=== PATIENT | female | born 1975 | race Caucasian/White ===

== ENCOUNTER 2023-01-26 22:19 | Outpatient (REF) | payer BC, SELFPAY ==
[2023-01-31 12:12] LABS: Age Gdln ACOG Testing Note (.); HPV Aptima Negative (Negative); IGP, Aptima HPV, rfx 16/18,45 Note (.)
== END 2023-01-26 22:20 | disposition home or self-care (01) ==
LOC: LAB 22:19
PROVIDERS: PCP Family Medicine; Visit Provider Physician Assistant
DX: Z01.419 Encounter for gynecological examination (general) (routine) without abnormal findings (principal)
CPT/HCPCS: 87624; G0145

== ENCOUNTER 2023-02-18 08:24 | Outpatient (OUT) | payer BC, SELFPAY ==
--- NOTE | 2023-02-18 08:26 | MM_ITS ---
Patient: SU ZHANG Exam Date: 02/18/2023 : 1975 Gender:F Ordering : DR Viktor Chavez . Admission #: [id number] Family : Non-Staff Physician Order #: [id number] CLICK HERE TO VIEW EXAM RADIOLOGY REPORT PROCEDURE: MM TOMOSYNTHESIS SCREENING BI COMPARISON: MG MAMM SCREEN 3D HECTOR CAD, 02/17/2022. MG MAMM SCREEN 3D HECTOR CAD, 02/08/2021. INDICATIONS: Screening Calculator Name NCI Breast Cancer Risk Assessment Tool 5 Year Breast Cancer Risk 1.00% Lifetime Breast Cancer Risk 11.90% Personal Breast Cancer No Personal Ovarian Cancer No Treatments None Family Cancers None LOCATION: [facility] BREAST COMPOSITION: Heterogeneously dense,which may obscure small masses. FINDINGS: DIAGNOSTIC CATEGORY 1--NEGATIVE. NO CHANGE FROM COMPARISON ASSESSMENT. Scattered benign-appearing calcifications are present. RIGHT BREAST: No significant suspicious finding. LEFT BREAST: No significant suspicious finding. RECOMMENDATIONS: ROUTINE MAMMOGRAM AND CLINICAL EVALUATION IN 12 MONTHS. PLEASE NOTE: A NORMAL MAMMOGRAM DOES NOT EXCLUDE THE POSSIBILITY OF BREAST CANCER. A CLINICALLY SUSPICIOUS PALPABLE LUMP SHOULD BE BIOPSIED. Dictated by: Chris Licea MD on 02/18/2023 at 09:06 Approved by: Chris Licea MD on 02/18/2023 at 09:07
== END 2023-02-18 08:25 | disposition home or self-care (01) ==
LOC: MAMMO 08:24
PROVIDERS: Visit Provider Obstetrics & Gynecology
DX: Z12.31 Encounter for screening mammogram for malignant neoplasm of breast (principal)
CPT/HCPCS: 77063; 77067

== ENCOUNTER 2024-02-24 06:57 | Outpatient (OUT) | payer BC, SELFPAY ==
--- NOTE | 2024-02-24 07:00 | MM_ITS ---
Patient Name: SU ZHANG MR#: [id number] : 1975 Exam Date: 02/24/2024 Ordering Doctor: DR Viktor Chavez . RADIOLOGY REPORT PROCEDURE: MM TOMOSYNTHESIS SCREENING BI COMPARISON: MM TOMOSYNTHESIS SCREENING BI, 02/18/2023. MG MAMM SCREEN 3D HECTOR CAD, 02/17/2022. MG MAMM SCREEN 3D HECTOR CAD, 02/08/2021. MG MAMM SCREEN HECTOR W CAD, 01/27/2018. INDICATIONS: Screening for malignant neoplasm Calculator Name [facility] Breast Cancer Risk Assessment Tool 5 Year Breast Cancer Risk 1.10% Lifetime Breast Cancer Risk 11.80% Personal Breast Cancer No Personal Ovarian Cancer No Treatments None Family Cancers None LOCATION: [facility] BREAST COMPOSITION: The breasts are heterogeneously dense,which may obscure small masses. FINDINGS: DIAGNOSTIC CATEGORY 1--NEGATIVE. RIGHT BREAST: No significant suspicious finding. No significant change has occurred. LEFT BREAST: No significant suspicious finding. No significant change has occurred. RECOMMENDATIONS: ROUTINE MAMMOGRAM AND CLINICAL EVALUATION IN 12 MONTHS. PLEASE NOTE: A NORMAL MAMMOGRAM DOES NOT EXCLUDE THE POSSIBILITY OF BREAST CANCER. A CLINICALLY SUSPICIOUS PALPABLE LUMP SHOULD BE BIOPSIED. Dictated by: Vaughn Hunt M.D. on 02/26/2024 at 09:13 Approved by: Vaughn Hunt M.D. on 02/26/2024 at 09:25
== END 2024-02-24 06:58 | disposition home or self-care (01) ==
LOC: MAMMO 06:57
PROVIDERS: Visit Provider Obstetrics & Gynecology
DX: Z12.31 Encounter for screening mammogram for malignant neoplasm of breast (principal)
CPT/HCPCS: 77063; 77067

== ENCOUNTER 2024-04-07 11:54 | Outpatient (OUT) | payer BC, SELFPAY ==
--- OUTSIDE RECORDS SUMMARY | 2024-04-07 11:56 | XMS_ITS | CCD ---
Author Organization [facility] Care Team Providers Care Chiropractic Neurologist Name Role Phone PHYSICIAN, DEFAULT Unavailable Unavailable PHYSICIAN, DEFAULT Unavailable Unavailable PHYSICIAN, DEFAULT Unavailable Unavailable PHYSICIAN, DEFAULT Unavailable Unavailable KALA MARCUS Admitting Unavailable KALA MARCUS Attending Unavailable STEPHANIE, DR MILLER Primary Care Unavailable KALA MARCUS Consulting Unavailable KARASIK, DR RAMSEY Admitting Unavailable KARASIK, DR RAMSEY Attending Unavailable STEPHANIE, DR MILLER Primary Care Unavailable KARASIK, DR RAMSEY Consulting Unavailable WEST, DR CRISPIN Graham Consulting Unavailable KARASIK, DR RAMSEY Admitting Unavailable KARASIK, DR RAMSEY Attending Unavailable STEPHANIE, DR MILLER Primary Care Unavailable KARASIK, DR RAMSEY Consulting Unavailable KALA MARCUS Attending Unavailable LINDA CHOUDHURY Attending Unavailable HEMLINDA RODRIGUEZ Attending Unavailable Problems Active Problems Problem Classification Problem Date Documented Date Episodic/Chronic Immunizations and screening for infectious disease (1 source) Encounter for screening for human papillomavirus (HPV); Translations: [ENC SCREENING HUMAN PAPILLOMAVIRUS] Onset: 04-03-2022 Episodic Other screening for suspected conditions (not mental disorders or infectious disease) (8 sources) Encounter for screening for malignant neoplasm of cervix; Translations: [Encounter for screening mammogram for malignant neoplasm of breast] Onset: 02-17-2022 Episodic Unclassified (3 sources) OTHER VENTRICULAR TACHYCARDIA; Translations: [OTHER VENTRICULAR TACHYCARDIA] Onset: 05-04-2022 Past or Other Problems Problem Classification Problem Date Documented Da te Episodic/Chronic Unclassified (1 source) OTHER VENTRICULAR TACHYCARDIA; Translations: [OTHER VENTRICULAR TACHYCARDIA] Onset: 04-30-2022 Results Test Name Value Interpretation Reference Range Facility Office Visiton 06-26-2023 Follow-up visit [id number] Su Zhang 1975 F Date Provider Department Center 06/26/2023 6120-KALA MARCUS CARD [facility] Family History Problem Relation Age of Onset Diabetes Brother Hypertension Maternal Grandmother Hyperlipidemia Maternal Grandfather Diabetes Maternal Grandfather Family Status - Relation Status Age at Brother Maternal Grandmother Maternal Grandfather Level of Service:91242 [place] OFFICE/OUTPATIENT ESTABLISHED LOW MDM 20 MIN Normal [facility] ECHOCARDIO M/2D COMPLETEon 1 06-30-2021 ECHOCARDIO M/2D COMPLETE Patient: SU ZHANG Exam Date: 04/30/2022 : 1975 Gender:F Ordering : KALA MARCUS Admission #: [id number] Family : DR PAUL BROWN M.D. Order #: [id number] CLICK HERE TO VIEW EXAM ECHOCARDIOGRAM REPORT PROCEDURE: CARDIO PULMONARY ECHOCARDIO M/2D COMP INDICATIONS: Paroxysmal ventricular tachycardia, Palpitations, HTN COMPARISON: None. DESCRIPTION: COMPLETE ECHOCARDIOGRAM Real-time transthoracic echocardiography with 2D, M-mode, spectral and color flow Doppler performed. QUALITY: Technical quality was adequate. 67 167# 124/82 HR 91 LEFT VENTRICLE: Normal chamber size. Normal left ventricular wall thickness. Global left ventricular systolic function is normal. No regional wall motion abnormalities. LV EF: Calculated left ventricular ejection fraction is 66%. DIASTOLIC: Normal diastolic function. ATRIAL SEPTUM: LEFT ATRIUM: Normal chamber size. RIGHT ATRIUM: Normal chamber size. RIGHT VENTRICLE: Normal chamber size. Normal right ventricular systolic function. TRICUSPID VALVE: Normal mobility and thickness. No stenosis with trivial regurgitation. Unable to calculate right sided pressures due to lack of regurgitation. MITRAL VALVE: Normal mobility and thickness. No evidence of mitral valve stenosis. Trivial mitral regurgitation. AORTIC VALVE: Normal trileaflet appearance. No evidence of aortic valve stenosis. No aortic regurgitation. AORTIC ROOT: Normal diameter and appearance. PULMONIC VALVE: Normal thickness and mobility. No stenosis. Trivial regurgitation. PERICARDIUM: Trivial pericardial effusion. IVC: Collapses with inspirations. IVC is normal in size. PLEURA: CONCLUSION: 1. Normal ventricular size and function. LVEF is estimated at 65 to 70%. 2. No significant valvular dysfunction. 3. Trivial pericardial effusion. Adult Echocardiography Procedure Report Left Ventricle LVEDD (3.7 - 5.6 cm): 4.58 cm LVESD (2.2 - 4.0 cm): 2.53 cm LVPW thickness (0.5 - 1.0 cm): 0.91 cm LVOT Max Gradient: 4.82 mm[Hg] Peak Velocity (LVOT): 1.10 m/s LVOT Diameter 2.08 cm Left Ventricular Ejection Fraction: 65-70 % Left Atrium LA Volume Index (2D A2C): 54.45 ml, 54.45 ml Left Atrium Systolic Dimension: 3.11 cm Mitral Valve MV E to A Ratio: 1.13 Mitral Valve A-Wave Peak Velocity: 0.56 m/s Mitral Valve E-Wave Peak Velocity: 0.63 m/s Right Ventricle RV Internal Diastolic Dimension: 3.75 cm Aorta AO Root Diam: 3.26 cm Ascending Ao Diam: 2.94 cm Aortic Valve AoV Area (Peak Cornell): 3.04 cm2, 3.04 cm2 Peak Velocity(Antegrade Flow): 1.22 m/s Peak Gradient(Antegrade Flow): 5.94 mm[Hg] Tricuspid Valve Peak Velocity: 0.50 m/s, 0.44 m/s Pulmonic Valve Peak Velocity: 1.03 m/s Peak Gradient: 4.22 mm[Hg] Right Atrium Dictated by: Henrique Conde M.D. on 04/30/2022 at 18:02 Approved by: Henrique Conde M.D. on 04/30/2022 at 18:05 [facility] PAP ACOG PANEL 2: 30 to 65on 04-06-2022 . . Normal [facility] Comment on above: Result Comment: Perf ormed at: BA Performed By: #### [id number] #### [facility] [address] [place] [address] Dr. Rocio Stein Age Gdln ACOG Testing 30-65 [facility] Comment on above: Performed By: #### [id number] #### [facility] [address] [address] [address] Rocio Stein DIAGNOSIS: Comment [facility] Comment on above: Result Comment: NEGA TIVE FOR INTRAEPITHELIAL LESION OR MALIGNANCY. Performed at: BA Performed By: #### [id number] #### [facility] [address] [address] [address] Rocio Stein HPV Aptima Negative Normal Negative [facility] Comment on above: Result Comment: This nucleic acid amplification test detects fourteen high-risk HPV types (16,18,31,33,35,39,45,51,52,56,58,59,66,68) without differentiation. Performed at: =G Performed By: #### [id number] #### [facility] [address] [place] [address] Dr. Rocio Stein Methodology: Comment Normal [facility] Comment on above: Result Comment: This liquid based ThinPrep(R) pap test was screened with the use of an image guided system. Performed at: WB Performed By: #### [id number] #### [facility] [address] [place] [address] Dr. Rocio Stein Note: Comment Normal [facility] Comment on above: Result Comment: The Pap smear is a screening test designed to aid in the detection of premalignant and malignant conditions of the uterine cervix. It is not a diagnostic procedure and should not be used as the sole means of detecting cervical cancer. Both false-positive and false-negative reports do occur. . Performed at: WB Performed By: #### [id number] #### [facility] [address] [place] [address] Dr. Rocio Stein Performed by: Comment Normal [facility] Comment on above: Result Comment: Kay Velarde, Paper Control Clerk (ASCP) Performed at: BA Performed By: #### [id number] #### [facility] [address] [place] [address] Dr. Rocio Stein Specimen adequacy: Comment Normal [facility] Comment on above: Result Comment: Sati sfactory for evaluation. Endocervical and/or squamous metaplastic cells (endocervical component) are present. Performed at: BA Performed By: #### [id number] #### [facility] [address] [place] [address] Dr. Rocio Stein MG MAMM SCREEN 3D FREDERICK CADon 02-17-2022 MG MAMM SCREEN 3D FREDERICK CAD Patient: SU ZHANG Exam Date: 02/17/2022 : 1975 Gender:F Ordering : DR BRAULIO WALTER . Admission #: [id number] Family : Order #: [id number] CLICK HERE TO VIEW EXAM RADIOLOGY REPORT PROCEDURE: MAMMOGRAM SCREENING 3D BILATERAL CAD COMPARISON: MG MAMM SCREEN FREDERICK W CAD, 02/08/2020. MG MAMM SCREEN 3D FREDERICK CAD, 02/08/2021. INDICATIONS: Screening mammography Calculator Name NCI Breast Cancer Risk Assessment Tool 5 Year Breast Cancer Risk 1.00% Lifetime Breast Cancer Risk 12.00% Personal Breast Cancer No Personal Ovarian Cancer No Treatments None Family Cancers None LOCATION: [facility] BREAST COMPOSITION: Heterogeneously dense,which may obscure small masses. FINDINGS: DIAGNOSTIC CATEGORY 2--BENIGN FINDING. NO CHANGE FROM COMPARISON. Scattered benign-appearing nodules are present. Bilateral geographic microcalcifications are grossly stable from the prior exam. While these do limit diagnostic sensitivity, I favor sclerosing adenosis. RIGHT BREAST: No significant suspicious finding. LEFT BREAST: No significant suspicious finding. RECOMMENDATIONS: ROUTINE MAMMOGRAM AND CLINICAL EVALUATION IN 12 MONTHS. PLEASE NOTE: A NORMAL MAMMOGRAM DOES NOT EXCLUDE THE POSSIBILITY OF BREAST CANCER. A CLINICALLY SUSPICIOUS PALPABLE LUMP SHOULD BE BIOPSIED. Dictated by: Crispin Licea MD on 02/17/2022 at 10:27 Approved by: Crispin Licea MD on 02/17/2022 at 11:03 Normal [facility] Coding Summary.on 01-27-2019 Coding Summary. CODING DATE: 01/27/2019 FINAL [facility] STATUS: Home (Routine DC) PAYOR: [place] APC DESCRIPTION 5155 Level 5 Airway Endoscopy ADMIT DX: REASON FOR VISIT DX: J34.89 Other specified disorders of nose and nasal sinuses FINAL DX: PRINCIPAL: J34.89 Other specified disorders of nose and nasal sinuses SECONDARY: J32.0 Chronic maxillary sinusitis J32.2 Chronic ethmoidal sinusitis I10 Essential (primary) hypertension K21.9 Gastro-esophageal reflux disease without esophagitis PYMT PROC APC STAT DESCRIPTION DOCTOR NAME DATE 31328 Nasal/sinus endoscopySimran MD, Hilary H 01/20/2019 surgical; with tonia bullosa resection 50 Bilateral Procedure [id number] 5155 J1 Nasal/sinus endoscopySimran MD, Hilary H 01/20/2019 surgical with ethmoidectomy; partial (anterior) LT Left side (used to identify procedures performed on the left side of the body) 22363 Nasal/sinus endoscopy, Annelise Khalil MD 01/20/2019 surgical, with maxillary antrostomy; 50 Bilateral Procedure [id number] Anesthesia for Keshia Jairo Galan DO 01/20/2019 procedures on nose and accessory sinuses; not otherwise specified NOTE: The code number assigned matches the documented diagnosis and / or procedure in the patient's chart. However, the narrative phrase printed from the coding software may appear abbreviated, or result in slightly different terminology. Revised Coded By: Ivania Gray Revised Date Saved: 01/27/2019 02:02 pm Normal [facility] Operative Reporton 9 Operative Report Date of Surgery: 01/20/2019 SURGEON: Annelise Khalil Jr., M.D. 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 INDICATIONS: This 43-year-old presented with chronic maxillary and ethmoid sinusitis unresponsive to aggressive medical management. PROCEDURE: The patient identified in the Holding Area and taken back to the Operating Room where she was placed in a supine. After induction of general endotracheal anesthesia, the table was turned, the head elevated 20 degrees and the face was draped in a sterile fashion. Afrin-soaked pledgets were then placed on each side of the nose after waiting adequate time for decongestion. The nose was approached with a nasal endoscope. Lidocaine 1% with 1:1000 epinephrine was injected into each middle turbinate and the lateral nasal wall. An Afrin-soaked pledget was then placed lateral to the middle turbinate on each side. While awaiting hemostasis, the image-guidance system was registered and proper function was verified. The Afrin-soaked pledgets were then removed. Both sides of the nose were copiously irrigated. Attention was first turned to the right nose. The nose was approached with a nasal endoscope and a curved scissor to the right was used to excise the tonia bullosa and it was removed with a straight ethmoid forcep. The uncinate process was then incised with a sickle knife and removed with an ethmoid forcep. The natural ostium of the maxillary sinus was identified with a Graham seeker and then opened posteriorly with a straight biting forcep and inferiorly with side biting and back biting forceps. The posterior root of the middle turbinate was then prophylactically cauterized to minimize the risk of postoperative bleeding. Attention was then turned to the left side of the nose and the same procedure was performed. After completing the maxillary antrostomy, however straight and upbiting ethmoid forceps were used to open the anterior ethmoid air cells. Both sides of the nose were then copiously irrigated. There was no significant bleeding. The patient was awakened and taken to the Recovery Room in good condition. Annelise Khalil Jr., M.D. gls Dictated: 01/27/2019 #[id number] Typed: 01/27/2019 #[id number] cc: MD Annelise Ferraro Jr., M.D. [facility] Comment on above: Result Comment: Elec tronically Signed By: Annelise Khalil MD\.br\Date and Time Signed: 01/27/19 11:46 EDT Main OR Intraoperative Recor don 01-21-2019 Main OR Intraoperative Record IntraOp Document Type FT Summary Primary Physician: Annelise Khalil MD Finalized Date/Time: 01/21/19 12:25:07 Pt. Name: SU ZHANG/Sex: 1975 Female Med Rec #: [id number] Physician: Annelise Khalil MD Financial #: [id number] Pt. Type: A Room/Bed: [facility] Admit/Disch: 01/20/19 08:56:00 - 01/20/19 13:15:00 Institution: Case Times FT Entry 1 Patient Times In Room 01/20/19 10:17:00 Out Room 01/20/19 11:01:00 Procedure Times Start 01/20/19 10:31:00 Stop 01/20/19 10:53:00 Anesthesia Times Start 01/20/19 10:17:00 Stop 01/20/19 11:01:00 Last Modified By: Deepti Auguste CST 01/20/19 11:01:25 General Comments: 01/21/19 Chart opened to review and send charges Hill Auguste CST Case Attendance FT Entry 1 Entry 2 Entry 3 Case Attendee Keshia Galan DO, Jairo Khalil MD, Annelise Vivas RN, Ross Kyle Role Performed Anesthesiologist of Surgeon - Primary Class A Truck Driver - Primary Record Time In 01/20/19 10:17:00 01/20/19 10:17:00 01/20/19 10:17:00 Time Out 01/20/19 11:01:00 01/20/19 11:01:00 01/20/19 11:01:00 Procedure ANTROSTOMY TURBINECTOMY ANTROSTOMY TURBINECTOMY ANTROSTOMY TURBINECTOMY ETHMOIDECTOMY IM(.) ETHMOIDECTOMY IM(.) ETHMOIDECTOMY IM(.) Comments Last Modified By: Sangeetha LESTER, Ross Vivas RN, Ross Hart RN 01/20/19 11:01:27 01/20/19 11:01:27 01/20/19 11:01:27 Entry 4 Entry 5 Case Attendee Sage RN, Linda West CST, Tawnya Shore Role Performed Class A Truck Driver - Primary Scrub - Primary Time In 01/20/19 10:17:00 01/20/19 10:17:00 Time Out 01/20/19 11:01:00 01/20/19 11:01:00 Procedure ANTROSTOMY TURBINECTOMY ANTROSTOMY TURBINECTOMY ETHMOIDECTOMY IM(.) ETHMOIDECTOMY IM(.) Comments Last Modified By: Sangeetha LESTER, Ross Hart RN 01/20/19 11:01:27 01/20/19 11:01:27 Perioperative Protocols FT Pre-Care Text: Implements protective measures prior to operative or invasive procedure, confirms identity before the operative or invasive procedure, verifies operative procedure, surgical site, and laterality Entry 1 Procedure(s) ANTROSTOMY TURBINECTOMY Patient Identity Birthday, ID Band ETHMOIDECTOMY IM(.) Verified (select at Check, Patient least 2): Participation Consents / H and P Anesthesia Consent, Operative Site Present Verified HandP, Surgery/Procedure Marking Verified Consent Surgical Site Yes Laterality Verified Yes Verified Procedure Verified Yes Correct Patient Yes Position Verified Availability Equipment, Medication Prep Dry n/a Verified (If Applicable) PreOp Antibiotic No Time Out Keshia Galan DO, Jairo, Given Participants Simran JONES, Annelise Lerner, Sangeetha LESTER, Sage Saha RN, Jenna Vizcarra CST, Tawnya Shore Time Out Complete 01/20/19 10:30:00 Outcomes Met? Yes Last Modified By: Ross Vivas RN 01/20/19 10:30:28 Post-Care Text: The patient is free from signs and symptoms of injury caused by extraneous objects Allergy Information FT Pre-Care Text: Verifies allergies Entry 1 Allergies Reviewed? Yes Allergies Reviewed Self/Patient With Outcomes Met? Yes Last Modified By: Ross Vivas RN 01/20/19 10:30:42 Post-Care Text: The patient received appropriate medication(s) safely administered during the perioperative period Surgical Procedures FT Entry 1 Procedure Description Procedure ANTROSTOMY TURBINECTOMY Modifiers . ETHMOIDECTOMY IMAGE GUIDED Surgeon Description IMAGE GUIDED BILATERAL MIDDLE MEATAL ANTROSTOMY LEFT ANTERIOR ETHMOIDECTOMY BILATERAL REMOVAL TONIA BULLOSA Primary Procedure Yes Primary Surgeon Annelise Khalil MD Start 01/20/19 10:31:00 Stop 01/20/19 10:53:00 Anesthesia Type General Surgical Service ENT Wound Class 2 - Clean-Contaminated Last Modified By: Ross Vivas RN 01/20/19 10:54:22 General Case Data FT Pre-Care Text: Classifies surgical wound, implements aseptic technique, initiates traffic control Entry 1 Case Information OR OR 2 FT Case Level Level 3 Wound Class 2 - Clean-Contaminated Specialty ENT ASA Class 2 Preop Diagnosis CHRONIC SINUSITIS Postop Same As Preop Yes Postop Diagnosis CHRONIC SINUSITIS Outcomes Met? Yes Last Modified By: Ross Vivas RN 01/20/19 10:54:27 Post-Care Text: The patient is free from signs and symptoms of infection Skin Assessment (Pre Procedure) FT Pre-Care Text: Implements protective measures to prevent skin/ tissue injury due to thermal or mechanical sources Evaluates for signs and symptoms of physical injury to skin and tissue Entry 1 Skin Integrity Intact, [place], Warm, and Outcomes Met? Yes Dry Last Modified By: Ross Vivas RN 01/20/19 10:30:49 Post-Care Text: The patient is free from signs and symptoms of injury caused by extraneous objects Patient Positioning FT Pre-Care Text: Identifies physical alterations that require additional precautions for procedure-specific positioning, verifies presence of prosthetics or corrective devices, positions the patient, evaluates the patient for signs and symptoms of injury as a result of positioning Entry 1 Procedure ANTROSTOMY TURBINECTOMY Body Position Supine ETHMOIDECTOMY IM(.) Feet Uncrossed? Yes Left Arm Position Extended on Padded Arm Board Right Arm Position Tucked and Padded at Left Leg Position Extended Side Right Leg Position Extended Positioning Device Donut Headrest, Safety Strap, Shoulder Roll(s) Press Points Checked Yes By Sangeetha LESTER, Keshia Saha Jr., DO, Gary, Farris RN, Linda Kyle Outcomes Met? Yes Last Modified By: Ross Vivas RN 01/20/19 10:31:16 Post-Care Text: The patient is free from signs and symptoms of injury related to positioning Patient Care Devices FT Pre-Care Text: Implements protective measures to prevent skin/ tissue injury due to thermal or mechanical sources Entry 1 Entry 2 Entry 3 Equipment Type CONSOLE MEDTRONIC IPC HEADLIGHT[F] MEDTRONIC FUSION SYSTEM [F] [F] Equipment Number Equipment Setting Outcomes Met? Yes Yes Yes Last Modified By: Ross Vivas RN, RN, Ross Hart RN 01/20/19 09:40:24 01/20/19 09:40:24 01/20/19 09:40:24 Entry 4 Entry 5 Entry 6 Equipment Type MISTRAL FORCED AIR MONITOR CHARGE SURGERY VIDEO SYSTEM[F] WARMING SYSTEM UNIT[F] [F] Equipment Number m2 Equipment Setting 43 Outcomes Met? Yes Yes Yes Last Modified By: Ross Vivas RN, RN, Ross Hart RN 01/20/19 09:40:24 01/20/19 09:40:24 01/20/19 09:40:24 Post-Care Text: The patient is free from signs and symptoms of injury caused by extraneous objects Transport To OR FT Pre-Care Text: Transports according to individual needs. Evaluates for signs and symptoms of skin and tissue injury as a result of transfer or transport Entry 1 Via Cart By Ross Vivas RN Safety Precautions Side Rails Up Outcomes Met? Yes Last Modified By: Ross Vivas RN 01/20/19 09:40:35 Post-Care Text: The patient is free from signs and symptoms of injury related to transfer/transport Cautery FT Pre-Care Text: Implements protective measures to prevent injury due to electrical sources, and evaluates for signs and symptoms of electrical injury Entry 1 ESU Identification ESU Settings Cut 0 Coag 15 ESU Grounding Pad Site Left Thigh Hair Removal Pad No Site Pre Pad Site Clear and Intact Post Pad Site Clear and Intact Condition Condition Grounding Pad Ross Vivas RN Placed By Outcomes Met? Yes Last Modified By: Ross Vivas RN 01/20/19 10:20:28 Post-Care Text: The patient if free from signs and symptoms of electrical injury Counts Verification FT Pre-Care Text: Performs required counts Entry 1 Entry 2 Procedure(s) ANTROSTOMY TURBINECTOMY ANTROSTOMY TURBINECTOMY ETHMOIDECTOMY IM(.) ETHMOIDECTOMY IM(.) Type Initial Final Items Sponges, Sharps Sponges, Sharps Status Correct Correct Time By Jenna NASSAR, Tawnya Shore, Tawnya West CST, Tinker RN, Linda Sal RN Outcomes Met? Yes Yes Last Modified By: Ross Vivas RN, RN, Kail M 01/20/19 10:31:38 01/20/19 11:00:18 Post-Care Text: The patient is free from signs and symptoms of injury caused by extraneous objects Departure From OR FT Pre-Care Text: Transports according to individual needs. Evaluates for signs and symptoms of skin and tissue injury as a result of transfer or transport. Entry 1 Via Cart Safety Precautions Side Rails Up PostOp Destination PACU Transported By Ross Vivas RN Patient Status Stable Skin. Condition Intact, [place], Warm, and Dry Airway Maintenance Oxygen in Use? Yes Airway Device Simple Mask Flow Rate 8 L Outcomes Met? Yes Last Modified By: Ross Vivas RN 01/20/19 10:32:03 Post-Care Text: The patient is free from signs and symptoms of injury related to transfer/transport General Comments: report to pacu nurse/ megan lesterinsulation worker furnace installer Administration FT Pre-Care Text: Verifies allergies, administers prescribed medications and solutions, administers prescribed antibiotic therapy and immunizing agents as ordered, evaluates response to medications Administers prescribed medications and solutions Entry 1 Expiration Date Yes Outcomes Met? Yes Verified Last Modified By: Ross Vivas RN 01/20/19 10:20:34 Post-Care Text: The patient received appropriate medication(s) safely administered during the perioperative period For [facility] please see scanned medication reconcilliation form for medications used at the field during the procedure. Cultures and Specimens FT Pre-Care Text: Manages specimen handling and disposition Manages culture specimen collection Entry 1 Cultures Ordered No Specimens Ordered Yes Specimen Disposition Designated OR Area Frozen Section Times Outcomes Met? Yes Last Modified By: oRss Vivas RN 01/20/19 10:32:17 Post-Care Text: The patient is free from signs and symptoms of injury caused by extraneous objects The patient is free from signs and symptoms of infection Temperature Control Entry 1 Temperature Control BLANKET MISTRAL AIR Quantity 1 Aid PLUS LOWER BODY [[id number]][F] Fluid/[place] Unit Mistral warming system Setting 43 Body Site Lower anterior torso Last Modified By: Ross Vivas RN 01/20/19 09:41:59 Case Comments Finalized By: Deepti Auguste CST Document Signatures Signed By: Ross Vivas RN 01/20/19 11:01 Deepti Auguste CST 01/21/19 12:25 Normal [facility] B hCG Qualon 01-20-2019 Beta hCG Ql Negative Normal [facility] Comment on above: Performed By: #### [id number] ####[facility] [id number] [place] [address] Inpatient Patient Summaryon 01-20-2019 Inpatient Patient Summary [facility] Clinical Discharge Instructions PERSON INFORMATION Name: SU ZHANG PHYSICIANS Admitting Physician: Annelise Khalil MD Attending Physician: Annelise Khalil MD PCP: PAUL BROWN MD Discharge Diagnosis: Chronic ethmoidal sinusitis; Chronic maxillary sinusitis; Tonia bullosa Comment: PATIENT EDUCATION INFORMATION Instructions: Medication Leaflets: Follow up: With: Address: When: Annelise Khalil [address] [place] [address], [address] [place] [address] Business (1) In 8 days 01/28/2019 MEDICATION LIST Comment: [facility] Main OR PACU I [facility] Main OR PACU I Record PACU Phase I Document Type FT Summary Primary Physician: Annelise Khalil MD Finalized Date/Time: 01/20/19 11:49:49 Pt. Name: SU ZHANG/Sex: 1975 Female Med Rec #: [id number] Physician: Annelise Khalil MD Financial #: [id number] Pt. Type: A Room/Bed: [facility] Admit/Disch: 01/20/19 08:56:33 - Institution: Case Times PACU I FT Pre-Care Text: Identifies barriers to communication and implements measures to provide psychological support Develops individualized plan of care, and ensures continuity of care Maintains patient's dignity and privacy, and maintains patient confidentiality Identifies and reports philosophical, cultural, and spiritual beliefs and values Identifies individual values and wishes concerning care Implements aseptic technique, and administers prescribed antibiotic therapy and immunizing agents as ordered Evaluates postoperative tissue perfusion Implements thermoregulation measures, and monitors body temperature Evaluates postoperative respiratory status Evaluates postoperative cardiac status Evaluates postoperative neurological status Assesses pain control, collaborated in initiating patient-controlled analgesia and implements alternative methods of pain control Verifies allergies, administers prescribed medications and solutions, evaluates response to medications Entry 1 In PACU I 01/20/19 11:03:00 Discharge from PACU 01/20/19 11:33:00 I Outcomes Met? Yes Last Modified By: Rosa Chu RN 01/20/19 11:49:40 Post-Care Text: The patient demonstrates knowledge of the expected response to the operative or invasive procedure The patient's care is consistent with the individualized perioperative plan of care The patient's right to privacy is maintained The patient's value system, lifestyle, ethnicity, and culture are considered, respected, and incorporated into the perioperative plan of care The patient participates in decisions affecting his or her perioperative plan of care The patient is free from signs and symptoms of infection The patient has wound/tissue perfusion consistent with or improved from baseline levels established preoperatively The patient is at or returning to normothermia at the conclusion of the immediate postoperative period The patient's respiratory function is consistent with or improved from baseline levels established preoperatively The patient's cardiovascular status is consistent with or improved from baseline levels established preoperatively The patient's cardiovascular status is consistent with or improved from baseline levels established preoperatively The patient demonstrates and/or reports adequate pain control throughout the perioperative period The patient received appropriate medication(s), safely administered during the perioperative period Acuity Level PACU I FT Entry 1 Start Time 01/20/19 11:03:00 Stop Time 01/20/19 11:33:00 Acuity Level Acuity Level I Last Modified By: Rosa Chu RN 01/20/19 11:49:47 Finalized By: Rosa Chu RN Document Signatures Signed By: Rosa Chu RN 01/20/19 11:49 Normal [facility] Main OR PACU II Recordon Main OR PACU II Record PACU Phase II Document Type FT Summary Primary Physician: Annelise Khalil MD Finalized Date/Time: 01/20/19 13:19:04 Pt. Name: SU ZHANG/Sex: 1975 Female Med Rec #: [id number] Physician: Annelise Khalil MD Financial #: [id number] Pt. Type: Room/Bed: [place] [address] Admit/Disch: 01/20/19 08:56:33 - Institution: Case Times PACU II FT Pre-Care Text: Identifies barriers to communication and implements measures to provide psychological support and determines knowledge level Develops individualized plan of care, and ensures continuity of care Maintains patient's dignity and privacy, and maintains patient confidentiality Identifies and reports philosophical, cultural, and spiritual beliefs and values Identifies individual values and wishes concerning care administers prescribed antibiotic therapy and immunizing agents as ordered, Evaluates postoperative tissue perfusion Implements thermoregulation measures, and monitors body temperature Evaluates postoperative respiratory status Evaluates postoperative cardiac status Evaluates postoperative neurological status Assesses pain control, collaborated in initiating patient-controlled analgesia and implements alternative methods of pain control Verifies allergies, administers prescribed medications and solutions, evaluates response to medications Entry 1 In PACU II 01/20/19 11:35:00 Discharge from PACU 01/20/19 13:15:00 II Outcomes Met? Yes Last Modified By: Scarlett Bermudez RN 01/20/19 13:19:03 Post-Care Text: The patient demonstrates knowledge of the expected response to the operative or invasive procedure The patient's care is consistent with the individualized perioperative plan of care The patient's right to privacy is maintained The patient's value system, lifestyle, ethnicity, and culture are considered, respected, and incorporated into the perioperative plan of care The patient participates in decisions affecting his or her perioperative plan of care. The patient is free from signs and symptoms of infection The patient has wound/tissue perfusion consistent with or improved from baseline levels established preoperatively The patient is at or returning to normothermia at the conclusion of the immediate postoperative period The patient's respiratory function is consistent with or improved from baseline levels established preoperatively The patient's cardiovascular status is consistent with or improved from baseline levels established preoperatively The patient's neurological status is consistent with or improved from baseline levels established preoperatively The patient demonstrates and/or reports adequate pain control throughout the perioperative period The patient received appropriate medication(s), safely administered during the perioperative period Finalized By: Scarlett Bermudez RN Document Signatures Signed By: Scarlett Bermudez RN 01/20/19 13:19 Normal [facility] Main OR Preoperative Recordo n 01-20-2019 Main OR Preoperative Record PreOp Document Type FT Summary Primary Physician: Annelise Khalil MD Finalized Date/Time: 01/20/19 10:32:39 Pt. Name: SU ZHANG/Sex: 1975 Female Med Rec #: [id number] Physician: Annelise Khalil MD Financial #: [id number] Pt. Type: A Room/Bed: [facility]07/23 Admit/Disch: 01/20/19 08:56:33 - Institution: Case Times PreOp FT Pre-Care Text: Verifies consent for planned procedure, identifies individual values and wishes concerning care, includes family members in perioperative teaching Entry 1 Patient Times. In Pre Surgery 01/20/19 09:05:00 Out Pre Surgery 01/20/19 10:16:00 Outcomes Met? Yes Last Modified By: Ross Vivas RN 01/20/19 10:32:36 Post-Care Text: The patient participates in decisions affecting his or her perioperative plan of care Finalized By: Ross Vivas RN Document Signatures Signed By: Ross Vivas RN 01/20/19 10:32 [facility] Operative Reporton 9 Operative Report Patient: SU ZHANG Age: 43 years Sex: Female : 1975 Associated Diagnoses: None Author: Annelise Khalil MD Postoperative Information Procedure: Frederick MMA and r/o conchae, left ant etmoidectomy Preoperative Diagnosis: Chronic maxillary sinusitis (KCL03-PH J32.0, Working, Medical), Tonia bullosa (SXI25-MZ J34.89, Working, Medical), Chronic ethmoidal sinusitis (YRP08-VY J32.2, Working, Medical). Postoperative Diagnosis: Chronic maxillary sinusitis (SZW65-ES J32.0, Discharge, Medical), Tonia bullosa (BZH34-WY J34.89, Discharge, Medical), Chronic ethmoidal sinusitis (FJW85-IE J32.2, Discharge, Medical). Performed by: Annelise Khalil MD. Findings: frederick conchae, grossly normal sinus anatomy. Specimens Removed: l7r sinus contents. Estimated Blood Loss: 10 ml. Medications Complications: None. [facility] Comment on above: Result Comment: Elec tronically Signed By: Annelise Khalil MD\.br\Date and Time Signed: 01/20/19 11:09 EDT Patient Education - Texton 0 01-20-2019 Patient Education - Text [facility] Coding Summary.on 01-07-2019 Coding Summary. CODING DATE: 01/07/2019 FINAL [facility] STATUS: Home (Routine DC) PAYOR: Cecile APC DESCRIPTION 5521 Level 1 Imaging without Contrast ADMIT DX: REASON FOR VISIT DX: Z01.818 Encounter for other preprocedural examination FINAL DX: PRINCIPAL: Z01.818 Encounter for other preprocedural examination SECONDARY: J32.9 Chronic sinusitis, unspecified PYMT PROC APC STAT DESCRIPTION DOCTOR NAME DATE NOTE: The code number assigned matches the documented diagnosis and / or procedure in the patient's chart. However, the narrative phrase printed from the coding software may appear abbreviated, or result in slightly different terminology. Coded By: Brittney Ballard CphT Date Saved: 01/07/2019 12:06 pm Normal [facility] Auto Diffon 01-04-2019 Basophils/100 WBC (Bld) 0.7 % Normal 0.0-2.0 [facility] Comment on above: Order Comment: Order Added by Discern Expert. Performed By: #### 2 [id number], [id number], [id number] #### [facility] [address] [place] [address] 28580 Basophils/Leukocytes Auto (Bld) [Pure # fraction] 0.0 E9/L Normal 0.0-0.2 [facility] Comment on above: Order Comment: Order Added by Discern Expert. Performed By: #### 2 626676, [id number], [id number] #### [facility] [address] [place] [address] 12376 Eosinophils/100 WBC (Bld) 7.3 % Normal 0.0-8.0 [facility] Comment on above: Order Comment: Order Added by Discern Expert. Performed By: #### 2 609982, [id number], [id number] #### [facility] [address] [place] [address] 84264 Eosinophils/Leukocyt es Auto (Bld) [Pure # fraction] 0.5 E9/L Normal 0.0-0.5 [facility] Comment on above: Order Comment: Order Added by Discern Expert. Performed By: #### 2 343450, [id number], [id number] #### [facility] [address] [place] [address] 42997 Lymphocytes/100 WBC (Bld) 23.6 % Normal 14.0-50.0 [facility] Comment on above: Order Comment: Order Added by Discern Expert. Performed By: #### 2 242235, 4906959, [id number] #### [facility] [address] [place] [address] 86996 Lymphocytes/Leukocyt es Auto (Bld) [Pure # fraction] 1.8 E9/L Normal 1.0-4.0 [facility] Comment on above: Order Comment: Order Added by Discern Expert. Performed By: #### 2 420755, [id number], [id number] #### [facility] [address] [place] [address] 99604 Monocytes/100 WBC (Bld) 6.4 % Normal 4.0-14.0 [facility] Comment on above: Order Comment: Order Added by Discern Expert. Performed By: #### 2 571430, 5276277, [id number] #### [facility] [address] [place] [address] 31682 Monocytes/Leukocytes Auto (Bld) [Pure # fraction] 0.5 E9/L Normal 0.2-1.0 [facility] Comment on above: Order Comment: Order Added by Discern Expert. Performed By: #### 2 379097, 0739768, [id number] #### [facility] [address] [place] [address] 66829 Neutrophils/100 WBC (Bld) 62.0 % Normal 36.0-75.0 [facility] Comment on above: Order Comment: Order Added by Discern Expert. Performed By: #### 2 600508, 8446645, [id number] #### [facility] [address] [place] [address] 31226 Neutrophils/Leukocyt es Auto (Bld) [Pure # fraction] 4.6 E9/L Normal 2.0-7.5 [facility] Comment on above: Order Comment: Order Added by Discern Expert. Performed By: #### 2 353218, 5199396, [id number] #### [facility] [address] [place] [address] BUNon 01-04-2019 Urea nitrogen [Mass/Vol] 10 mg/dL Normal 5-21 [facility] Comment on above: Performed By: #### 2 675938, 5141584, 26068911, [id number] #### [facility] [address] [place] [address] 08950 CBC w/ Auto Diffon 9 Erythrocyte distribution width (RBC) [Ratio] 12.9 % Normal 10.9-14.2 [facility] Comment on above: Performed By: #### 2 898238, 9671731, [id number] #### [facility] [address] [place] [address] Hematocrit (Bld) [Volume fraction] 41.7 % Normal 34.0-46.0 [facility] Comment on above: Performed By: #### 2 885667, 0336995, 39956914 #### [facility] [address] [place] [address] Hemoglobin (Bld) [Mass/Vol] 14.1 g/dL Normal 12.0-16.0 [facility] Comment on above: Performed By: #### 2 406934, 4951291, 94551956 #### [facility] [address] [place] [address] 55667 MCH (RBC) [Entitic mass] 31.6 pg Normal 27.0-34.0 [facility] Comment on above: Performed By: #### 2 254006, 9967533, 39752535 #### [facility] [address] [place] [address] MCHC (RBC) [Mass/Vol] 33.9 g/dL Normal 33.3-35.7 [facility] Comment on above: Performed By: #### 2 980453, 6297639, [id number] #### [facility] [address] [place] [address] MCV (RBC) [Entitic vol] 93.2 fL Normal 80.0-100.0 [facility] Comment on above: Performed By: #### 2 566020, 9613963, 03657707 #### [facility] [address] [place] [address] Platelet mean volume (Bld) [Entitic vol] 7.3 fL Normal 6.4-10.8 [facility] Comment on above: Performed By: #### 2 456035, 2141653, 50950940 #### [facility] [address] [place] [address] Platelets (Bld) [#/Vol] 361.0 E9/L Normal 150.0-500.0 [facility] Comment on above: Performed By: #### 2 480815, 0801080, 65176714 #### [facility] [address] [place] [address] RBC (Bld) [#/Vol] 4.5 E12/L Normal 4.3-5.9 [facility] Comment on above: Performed By: #### 2 070271, 7935209, 53109330 #### [facility] [address] [place] [address] WBC corrected for nucl RBC Auto (Bld) [#/Vol] 7.4 E9/L Normal 4.0-11.0 [facility] Comment on above: Performed By: #### 2 760597, 6654258, 04194076 #### [facility] [address] [place] [address] Creatinineon 01-04-2019 Creatinine [Mass/Vol] 0.6 mg/dL Normal 0.5-1.3 [facility] Comment on above: Performed By: #### 2 676509, 4277161, 54309466, 0808200 #### [facility] [address] [place] [address] Lyteson 01-04-2019 Anion gap [Moles/Vol] 17 mmol/L High -16 [facility] Comment on above: Performed By: #### 2 780597, 3588092, 30625868, 2398500 #### [facility] [address] [place] [address] Chloride [Moles/Vol] 105 mmol/L Normal 101-111 [facility] Comment on above: Performed By: #### 2 154489, 6430503, 60748721, 1403206 #### [facility] [address] [place] [address] CO2 [Moles/Vol] 21 mmol/L Normal 21-31 [facility] Comment on above: Performed By: #### 2 300377, 1781277, 23803797, 0255390 #### [facility] [address] [place] [address] Potassium [Moles/Vol] 3.6 mmol/L Normal 3.5-5.3 [facility] Comment on above: Performed By: #### 2 443487, 0390417, 93973924, 5457624 #### [facility] [address] [place] [address] Sodium [Moles/Vol] 139 mmol/L Normal 135-145 [facility] Comment on above: Performed By: #### 2 204924, 4506750, 57630667, 7275112 #### [facility] [address] [place] [address] PT & PTTon 01-04-2019 aPTT Coag (PPP) [Time] 27.9 second(s) Normal 25.1-36.5 [facility] Comment on above: Result Comment: Hepa rin therapeutic range (represented by Anti-Factor Xa activity of 0.2 - 0.4 U/mL) corresponds to PTT of 56.6 - 109.0 sec. Performed By: #### 2 374131, 0859184, 11772542 #### [facility] [address] [place] [address] INR Coag (PPP) [Relative time] 1.0 {INR} [facility] Comment on above: Result Comment: INR results are specifically intended to assess patients stabilized on long-term Anticoagulation therapy suggested INR?s ?Less Intensive Anticoagulation? 2.0 ? 3.0 Conventional Range 3.0 ? 4.5 Performed By: #### 2 765969, 3254518, 52306602 #### [facility] [address] [place] [address] PT Coag (PPP) [Time] 10.6 second(s) Normal 10.2-12.9 [facility] Comment on above: Performed By: #### 2 177887, 9945540, 08167927 #### [facility] [address] [place] [address] XR Chest 2 Viewson 9 XR Chest 2 Views Exam Date/Time: 01/04/2019 10:09 EDT Reason for Exam: Pre Op Report IMPRESSION: NO EVIDENCE OF ACTIVE CHEST DISEASE. CLINICAL HISTORY: Pre Op. COMMENT: The heart is normal in size. The mediastinum is unremarkable. The lungs appear clear. No infiltration nor pleural effusion is evident. There are bilateral metallic posterior stabilization rods associated with the thoracolumbar spine. FINAL REPORT Dictated: 01/04/2019 11:20 am Wilner Olmos M.D. Signed (Electronic Signature): 01/04/2019 11:20 am Signed by: Wilner Olmos M.D. Transcribed by: JEANA Technologist: ANNAMARIE Fitch [facility] eGFRon 01-04-2019 GFR/1.73 sq M predicted among blacks MDRD (S/P/Bld) [Vol rate/Area] mL/min/{1.73_m2} Normal >=59 [facility] Comment on above: Order Comment: Order added by Discern Expert. Result Comment: eGFR is race adjusted. AA=. Performed By: #### 2 792959, 9096936, 52131659, 0876297 #### [facility] [address] [place] [address] GFR/1.73 sq M predicted among non-blacks MDRD (S/P/Bld) [Vol rate/Area] mL/min/{1.73_m2} Normal >=59 [facility] Comment on above: Order Comment: Order added by Discern Expert. Result Comment: Scada Technician justus kidney disease could be indicated at eGFR's of less than 60 mL/min/1.73m2. Kidney failure is indicated at less than 15 mL/min/1.73m2. Performed By: #### 2 963308, 7244807, [id number], [id number] #### [facility] [address] [place] [address] Coding Summary.on 11-17-2018 Coding Summary. CODING DATE: 11/17/2018 FINAL [facility] STATUS: Home (Routine DC) PAYOR: Cecile APC DESCRIPTION 5522 Level 2 Imaging without Contrast ADMIT DX: REASON FOR VISIT DX: J32.4 Chronic pansinusitis FINAL DX: PRINCIPAL: J32.4 Chronic pansinusitis SECONDARY: PYMT PROC APC STAT DESCRIPTION DOCTOR NAME DATE NOTE: The code number assigned matches the documented diagnosis and / or procedure in the patient's chart. However, the narrative phrase printed from the coding software may appear abbreviated, or result in slightly different terminology. Coded By: Brittney Ballard CphT Date Saved: 11/17/2018 12:08 pm Normal [facility] CT Maxillofacial w/o Contras ton 11-16-2018 CT Maxillofacial w/o Contrast Exam Date/Time: 11/16/2018 07:59 EDT Reason for Exam: J32.4 PANSINUSITIS Report IMPRESSION:MUCOSAL THICKENING WITHIN THE MAXILLARY, ETHMOID, LEFT SPHENOID AND FRONTAL SINUSES. SMALL POLYPS OR RETENTION CYSTS IN THE INFERIOR ASPECTS OF THE MAXILLARY SINUSES. RHINITIS. NASAL SEPTUM DEVIATED TO THE RIGHT. SOME FLUID WITHIN THE MASTOID AIR CELLS. CLINICAL HISTORY: J32.4 PANSINUSITIS. Chronic sinuses issues, takes antibiotics with out relief, has Rt. sided nasal congestion, frontal pain, cough, BRAR, Rt. ear ache for 2 weeks now, no sx. hx., no ca. hx., shielded COMPARISONS: None available. TECHNIQUE: Axial images were initially obtained. Coronal and sagittal reformatted images were then obtained. FINDINGS: No evidence for facial bone or orbital fracture. There is mucosal thickening within the maxillary sinuses, most pronounced anteriorly. There is mucosal thickening in the ethmoid sinuses, left sphenoid sinus. Mild mucosal thickening in the frontal sinuses. No evidence of air-fluid levels within the sinuses. There are small polyps or retention cyst inferiorly within the maxillary sinuses. There is hypertrophy of nasal turbinates, consistent with rhinitis. The nasal septum is deviated to the right. There is mucosal thickening within the ostiomeatal units bilaterally. There is some fluid in the mastoid air cells. All CT scans at this facility use dose modulation, iterative reconstruction, and/or weight based dosing when appropriate to reduce radiation dose to as low as reasonably achievable. FINAL REPORT Dictated: 11/16/2018 3:19 pm Courtney Morataya MD Signed (Electronic Signature): 11/16/2018 3:19 pm Signed by: Courtney Morataya MD Transcribed by: JEANA Technologist: EMILEE Holbrook [facility] Encounters Encounter Date Encounter Type Care Provider Facility Start: 09-30-2023 End: 09-30-2023 ambulatory LINDA CHOUDHURY Not Available Start: 09-14-2023 End: 09-14-2023 ambulatory LINDA Kyle HEMMER Not Available Start: 06-26-2023 End: 06-26-2023 [facility] Start: 04-30-2022 End: 05-01-2022 ambulatory KALA MARCUS Facility:[facility] Start: 04-01-2022 End: 04-01-[address] BRAULIO WALTER Facility:[facility] Start: 02-17-2022 End: 02-18-[address] BRAULIO WALTER Facility:[facility] Start: 11-03-2017 End: 11-04-2017 Ambulatory DEFAULT PHYSICIAN Facility:[facility] Start: 10-30-2017 End: 10-31-2017 Ambulatory DEFAULT PHYSICIAN Facility:[facility] Procedures Date Procedure Procedure Detail Performing Clinician Start: 01-24-2019 Anesthesia consultation Start: 01-20-2019 Anesthesia consultation Payers Date Payer Category Payer Unknown [id number] 2022 Unknown [id number] 1975 Unknown [id number] 2.16.84 [id number] 1975 Unknown [id number] 2.16.84 [id number] 1975 Unknown [id number] 2.16.84 [id number] 1975 Unknown [id number] .16.84 [id number] 1975 Unknown [id number] 2.16.84 [id number] 1957 Private Health Insurance [id number] Unknown Progress note 06-26-2023 Note Date & Type Note Facility 06-26-2023 Note Patient here for 1 y ear follow up hypertension and palpitations. Denies chest pain. [facility] Progress note 06-26-2023 Note Date & Type Note Facility 06-26-2023 Note Cardiology Follow Up Progress Note Chief Complaint: follow up HPI: Su Zhang is a 47 y.o. female who was initially referred to Cardiology clinic for evaluation/management of palpitations, tachycardia, and hypertension. Patient presents today to cardiology clinic for follow-up. Patient adamantly denies any cardiac complaints or concerns. Patient denies any chest pain or shortness of breath. Patient denies any lower extremity edema, orthopnea, or proximal nocturnal dyspnea. No near-syncope or syncope. No dizziness or lightheadedness. Palpitations have significantly improved and almost resolved. Cardiology ROS: GENERAL: Denies fever, chills, night sweats, weight loss. HEENT: Denies changes in vision, photophobia, changes in hearing, epistaxis, oral bleeding. CARDIOVASCULAR: Endorses palpitations, improved. Denies chest pain, orthopnea/PND, lower extremity edema, lightheadedness/dizziness. No shortness of breath RESPIRATORY: Denies SOB, coughing, wheezing GI: Denies abdominal pain, nausea/vomiting, heartburn, melena/hematochezia. RENAL: Denies dysuria, hematuria, flank pain. MSK: Denies muscle weakness/pain, arthralgias/joint pain. NEUROLOGIC: Denies LOC, weakness, numbness, headaches. SKIN: Denies abnormal rashes or bleeding. PSYCH: Denies significant anxiety, depression, sleep disturbances. Medications Current Outpatient Medications on File Prior to Visit Medication Sig Dispense Refill dilTIAZem CD (Cardizem CD) 120 mg 24 hr capsule TAKE 1 CAPSULE (120 MG) BY MOUTH IN THE MORNING. 90 capsule 3 metoprolol succinate XL (Toprol-XL) 50 mg 24 hr tablet TAKE 1 TABLET BY MOUTH EVERY DAY IN THE MORNING 90 tablet 3 omeprazole (PriLOSEC) [address] capsule Take 1 tablet by mouth in the morning. cetirizine (ZyrTEC) 10 mg tablet Take 1 tablet by mouth if needed each day. No current facility-administered medications on file prior to visit. Allergies Patient has no known allergies. Physical Exam VITAL SIGNS: BP 132/84 (BP Location: Left arm, Patient Position: Sitting) Pulse 91 Ht 1.702 m (5' 7 ) Wt 79.8 kg (176 lb) SpO2 95% BMI 27.57 kg/m??? Constitutional: Well developed, Well nourished, No acute distress, Non-toxic appearance. HENT: Normocephalic, Atraumatic, Bilateral external ears have normal appearance, Bilateral TMs clear, Oropharynx moist, No oral or pharyngeal exudates, Nose appears normal, nares are patent. Eyes: PERRLA, EOMI, Conjunctiva normal, No discharge. Neck: Normal range of motion, No tenderness, Supple, No stridor. No cervical lymphadenopathy noted. Cardiovascular: Normal heart rate, Normal rhythm, No murmurs, No rubs, No gallops. Thorax & Lungs: Normal breath sounds, No respiratory distress, No wheezing, No chest tenderness to palpation. Abdomen: Bowel sounds normal, Soft, Nontender, No masses, No pulsatile masses. Skin: Warm, Dry, No erythema, No rash. Back: No tenderness, No CVA tenderness. Extremities: Intact distal pulses, No edema, No tenderness, No cyanosis, No clubbing. Musculoskeletal: Good range of motion in all major joints with 5/5 muscle strength in all muscle groups, No tenderness to palpation or major deformities noted. Neurologic: Alert & oriented x 3, Normal motor function in all major muscle groups, Normal sensory function to all major dermatomes, No focal deficits noted. Psychiatric: Affect normal, Judgment normal, Mood normal. Impression: -Palpitations, well controlled -Sinus tachycardia -Hypertension, well controlled Plan: -Echo ordered but not completed. Emphasized importance of having this performed -Bp is well controlled. Continue diltiazem and Toprol for HTN. -Optimize medical management -Aggressive risk factor modification -Plan of care discussed with patient. All questions were answered. Patient voices understanding and is agreeable with current plan. -Patient was educated on red flag symptoms. Strict return precautions were provided. Patient verbalizes understanding -Follow-up in cardiology clinic in 1 year, or sooner as needed. Kala Marcus MD Interventional Cardiology [facility] Summary Purpose Family History No Family History Records FoundNo Family History Records FoundNo Family History Records FoundNo Family History Records FoundNo Family History Records Found Advance Directives No Advanced Directives Records FoundNo Advanced Directives Records FoundNo Advanced Directives Records FoundNo Advanced Directives Records FoundNo Advanced Directives Records Found Additional Source Comments INFORMATION SOURCE (unrecogn ized section and content) DATE CREATED AUTHOR 12/09/2017 [facility] DATE CREATED AUTHOR AUTHOR'S ORGANIZ ATION [facility] DATE CREATED AUTHOR AUTHOR'S ORGANIZ ATION 05/04/2022 [facility] DATE CREATED AUTHOR AUTHOR'S ORGANIZ ATION 07/29/2023 [facility] DATE CREATED AUTHOR AUTHOR'S ORGANIZ ATION 10/01/2023 [facility] FOR RECORDS PERTAINING TO PATIENTS WHO ARE OR HAVE BEEN ENROLLED IN A CHEMICAL DEPENDENCY/SUBSTANCEABUSE PROGRAM, SOME INFORMATION MAY BE OMITTED. This clinical summary was aggregated from multiple sources. Caution should be exercised in using it in the provision of clinical care. This summary normalizes information from multiple sources, and as a consequence, information in this document may materially change the coding, format and clinical context of patient data. In addition, data may be omitted in some cases. CLINICAL DECISIONS SHOULD BE BASED ON THE PRIMARY CLINICAL RECORDS. [employer] [facility]. provides no warranty or guarantee of the accuracy or completeness of information in this document.
[2024-04-07 13:35] LABS: Basophils Absolute Auto 0.1 10^3/uL (0.0-0.1); Basophils Percent Auto 0.6 % (0.2-2.0); Eosinophils Absolute Auto 0.6 10^3/uL (0.0-0.7); Eosinophils Percent Auto 7.7 % (0.9-7.0); Hematocrit 44.2 % (36.0-48.0); Hemoglobin 14.8 g/dL (12.0-16.0); Immature Granulocytes Abs Auto 0.01 10^3/uL (0.00-0.03); Immature Granulocytes Pct Auto 0.1 % (0.0-0.5); Lymphocytes Absolute Auto 2.8 10^3/uL (1.2-3.8); Lymphocytes Percent Auto 35.7 % (20.5-60.0); Mean Corpuscular HGB Conc 33.5 g/dL (29.9-35.2); Mean Corpuscular Hemoglobin 31.6 pg (26.7-34.0); Mean Corpuscular Volume 94.4 fL (81.0-99.0); Mean Platelet Volume 9.3 fL (9.5-13.5); Monocytes Absolute Auto 0.5 10^3/uL (0.3-0.8); Monocytes Percent Auto 6.2 % (1.7-12.0); Neutrophils Absolute Auto 3.8 10^3/uL (1.4-6.5); Neutrophils Percent Auto 49.7 % (43.0-75.0); Platelet Count 371 10^3/uL (150-450); Red Blood Count 4.68 10^6/uL (4.20-5.40); Red Cell Distribution Width 11.6 % (11.0-15.0); White Blood Count 7.7 10^3/uL (4.0-11.0)
[2024-04-07 14:35] LABS: Estimated Average Glucose 105 mg/dL; Glycohemoglobin A1C 5.3 % (4.5-6.2)
[2024-04-07 15:45] LABS: Alanine Aminotransferase 52 U/L (14-59); Albumin Globulin Ratio 1.1; Albumin Level 4.2 g/dL (3.4-5.0); Alkaline Phosphatase 87 U/L (46-116); Anion Gap 15.4; Aspartate Amino Transferase 31 U/L (15-37); BUN Creatinine Ratio 13.5; Bilirubin Total 0.3 mg/dL (0.2-1.0); Calcium 10.2 mg/dL (8.5-10.1); Carbon Dioxide 26.7 mmol/L (21.0-32.0); Chloride 103 mmol/L (98-107); Chol HDL Ratio 3.6; Cholesterol 210 mg/dL (<=200); Estimated GFR (African America >60 (>=60 mL/min/1.73m^2); Estimated GFR (Non-African Ame >60 (>=60 mL/min/1.73m^2); Globulin 3.9 g/dL; Glucose 88 mg/dL (74-106); HDL Cholesterol 58 mg/dL (40-60); Potassium 4.1 mmol/L (3.5-5.1); Sodium 141 mmol/L (136-145); Thyroid Stimulating Hormone 1.184 uIU/mL (0.358-3.740); Total Protein 8.1 g/dL (6.4-8.2); Triglycerides 98 mg/dL (<=150); VLDL CHOLESTEROL 19.6 mg/dL
== END 2024-04-07 11:55 | disposition home or self-care (01) ==
LOC: LAB 11:54
PROVIDERS: Visit Provider Nurse Practitioner Family
DX: Z00.00 Encounter for general adult medical examination without abnormal findings (principal)
CPT/HCPCS: 80053; 80061; 83036; 84443; 85025

== ENCOUNTER 2024-09-17 07:24 | Outpatient (OUT) | payer BC, SELFPAY ==
--- OUTSIDE RECORDS SUMMARY | 2024-09-17 07:28 | XMS_ITS | CCD ---
Author Organization [facility] Care Team Providers Care Thermograph Operator Name Role Phone PHYSICIAN, DEFAULT Unavailable Unavailable [...] Care Unavailable KARASIK, DR RAMSEY Consulting Unavailable HEMMERLINDA Attending Unavailable HEMMERLINDA Attending Unavailable ALGHOTHCONCHIS, KALA Attending Unavailable IVETT ROD Attending Unavailable Problems Active Problems Problem Classification Problem Date Documented Date Episodic/Chronic Cardiac dysrhythmias (4 sources) Tachycardia, unspecified; Translations: [Palpitations] Onset: 02-20-2022 Episodic Disorders of lipid metabolism (2 sources) Pure hypercholesterolemia, unspecified; Translations: [Pure hypercholesterolemia, unspecified] Onset: 06-10-2024 Chronic Essential hypertension (2 sources) Essential (primary) hypertension; Translations: [Essential (primary) hypertension] Onset: 07-14-2022 Chronic Immunizations and screening for infectious disease (1 [...] Value Interpretation Reference Range Facility Office Visiton 06-10-2024 Follow-up visit [id number] Su Zhang 1975 F Date Provider Department Center 06/10/2024 [id number] SANCHES USHA Mejia [facility] Family History Problem Relation Age of Onset Diabetes Brother Hypertension Maternal Grandmother Hyperlipidemia Maternal Grandfather Diabetes Maternal Grandfather Family Status - Relation Status Age at Brother Maternal Grandmother Maternal Grandfather Level of Service:15393 UT OFFICE/OUTPATIENT ESTABLISHED MOD MDM 30 MIN Reason for Visit and Comments: Hypertension [542675] - Had routine labs with lipid panel in September 2023 and again in Mar. HR has been running high 80's to low 100's. Dizziness [795489] - Denies chest pain, SOB, and palpitations. Gets lightheaded at times. BP has been up and down. Normal [facility] [place] [facility] Office Visiton 06-26-2023 Follow-up visit [id number] Su Zhang Annabelle 1975 F Date Provider Department Center 06/26/2023 3848KALA JOSHUA USHA Allison Family History Problem Relation Age of Onset Diabetes Brother Hypertension Maternal Grandmother Hyperlipidemia Maternal Grandfather Diabetes Maternal Grandfather Family Status - Relation Status Age at Brother Maternal Grandmother Maternal Grandfather Level of Service:71876 UT OFFICE/OUTPATIENT ESTABLISHED LOW MDM 20 MIN Normal [facility] [place] [facility] ECHOCARDIO M/2D COMPLETEon 1 06-30-2021 ECHOCARDIO M/2D COMPLETE Patient: SU ZHANG. Exam Date: 04/30/2022 : 1975 Gender:F Ordering : KALA MARCUS Admission #: [id number] Family : DR PAUL BROWN M.D. Order #: [id number] CLICK HERE TO VIEW EXAM ECHOCARDIOGRAM REPORT [...] Henrique Conde M.D. on 04/30/2022 at 18:05 Normal [facility] PAP ACOG PANEL 2: 30 to 65on 04-06-2022 . . Normal [facility] Comment on above: Result Comment: Perf ormed at: BA Performed By: #### 4 [id number] #### [facility] [address] [address] [address] Rocio Stein Age Gdln ACOG Testing 30-65 [facility] Comment on above: Performed By: #### 4 [id number] #### [facility] [address] [address] [address] Rocio Stein DIAGNOSIS: Comment Normal [facility] Comment on above: Result Comment: NEGA TIVE FOR INTRAEPITHELIAL LESION OR MALIGNANCY. Performed at: BA Performed By: #### 4 [id number] #### [facility] [address] [address] [address] Rocio Stein HPV Aptima Negative Normal Negative [facility] Comment on above: Result Comment: This nucleic acid amplification test detects fourteen high-risk HPV types (16,18,31,33,35,39,45,51,52,56,58,59,66,68) without differentiation. Performed at: =G Performed By: #### 4 [id number] #### [facility] [address] [address] [address] Rocio Stein Methodology: Comment Normal [facility] Comment on above: Result Comment: This liquid based ThinPrep(R) pap test was screened with the use of an image guided system. Performed at: WB Performed By: #### 4 [id number] #### [facility] [address] [address] [address] Rocio Stein Note: Comment Normal [facility] Comment on above: Result Comment: The Pap smear is a screening test designed to aid in the detection of premalignant and malignant conditions of the uterine cervix. It is not a diagnostic procedure and should not be used as the sole means of detecting cervical cancer. Both false-positive and false-negative reports do occur. . Performed at: WB Performed By: #### 4 [id number] #### [facility] [address], [place] [address] Dr. Rocio Stein Performed by: Comment Normal [facility] Comment on above: Result Comment: Kay Velarde, Station Cook (ASCP) Performed at: BA Performed By: #### 4 [id number] #### [facility] [address] [address] [address] Rocio Stein Specimen adequacy: Comment Normal [facility] Comment on above: Result Comment: Sati sfactory for evaluation. Endocervical and/or squamous metaplastic cells (endocervical component) are present. Performed at: BA Performed By: #### 4 [id number] #### [facility] [address] [address] [address] Rocio Stein MG MAMM SCREEN 3D FREDERICK CADon 02-17-2022 MG MAMM SCREEN 3D FREDERICK CAD Patient: SU ZHANG Exam Date: 02/17/2022 : 1975 Gender:F Ordering : DR BRAULIO WALTER . Admission #: [id number] Family : Order #: [id number] CLICK HERE TO VIEW EXAM RADIOLOGY REPORT [...] Treatments None Family Cancers None LOCATION: [facility] BREAST COMPOSITION: Heterogeneously dense,which may obscure [...] Licea MD on 02/17/2022 at 11:03 Normal [facility] Coding Summary.on 01-27-2019 Coding Summary. CODING DATE: 01/27/2019 FINAL [facility] STATUS: Home (Routine DC) PAYOR: Cecile APC DESCRIPTION 5155 Level 5 Airway Endoscopy ADMIT DX: REASON FOR VISIT DX: J34.89 Other specified disorders of nose and nasal sinuses FINAL DX: PRINCIPAL: J34.89 Other specified disorders of nose and nasal sinuses SECONDARY: J32.0 Chronic maxillary sinusitis J32.2 Chronic ethmoidal sinusitis I10 Essential (primary) hypertension K21.9 Gastro-esophageal reflux disease without esophagitis PYMT PROC APC STAT DESCRIPTION DOCTOR NAME DATE 01646 Nasal/sinus endoscopySimran MD, Hilary H 01/20/2019 surgical; with tonia bullosa resection 50 Bilateral Procedure 35468 5155 J1 Nasal/sinus endoscopySimran MD, Hilary H 01/20/2019 surgical with ethmoidectomy; partial (anterior) LT Left side (used to identify procedures performed on the left side of the body) 73801 Nasal/sinus endoscopySimran MD, Hilary H 01/20/2019 surgical, with maxillary antrostomy; 50 Bilateral Procedure 86473 Anesthesia for Jairo Schmitt Jr., DO 01/20/2019 procedures on nose and accessory sinuses; not otherwise specified NOTE: The code number assigned matches the documented diagnosis and / or procedure in the patient's chart. However, the narrative phrase printed from the coding software may appear abbreviated, or result in slightly different terminology. Revised Coded By: Ivania Gray Revised Date Saved: 01/27/2019 02:02 pm Normal [facility] Operative Reporton 9 Operative Report Date of [...] the maxillary sinus was identified with a Lincoln seeker and then opened posteriorly with a [...] Annelise Khalil Jr., M.D. gls Dictated: 01/27/2019 #[id number] Typed: 01/27/2019 #[id number] cc: MD Annelise Ferraro Jr., M.D. [facility] Comment on above: Result Comment: Elec tronically Signed By: Annelise Khalil MD\.br\Date and Time Signed: 01/27/19 11:46 EDT Main OR Intraoperative Recor don 01-21-2019 Main OR Intraoperative Record IntraOp Document Type FT Summary Primary Physician: Annelise Khalil MD Finalized Date/Time: 01/21/19 12:25:07 Pt. Name: SU ZHANG/Sex: 1975 Female Med Rec #: [id number] Physician: Annelise Khalil MD Financial #: [id number] Pt. Type: A Room/Bed: [address] [address] Admit/Disch: 01/20/19 08:56:00 - 01/20/19 13:15:00 Institution: [...] Role Performed Anesthesiologist of Surgeon - Primary Lead Technician - Primary Record Time In 01/20/19 10:17:00 01/20/19 10:17:00 01/20/19 10:17:00 Time Out 01/20/19 11:01:00 01/20/19 11:01:00 01/20/19 11:01:00 Procedure ANTROSTOMY TURBINECTOMY ANTROSTOMY TURBINECTOMY ANTROSTOMY TURBINECTOMY ETHMOIDECTOMY IM(.) ETHMOIDECTOMY IM(.) ETHMOIDECTOMY IM(.) Comments Last Modified By: Sangeetha LESTER, Ross Vivas RN, Ross Vivas RN, Ross Kyle 01/20/19 11::01/20/19 11:01/20/19 11:01:27 Entry 4 Entry 5 Case Attendee Sage LESTER, Linda West CST, Tawnya Shore Role Performed Lead Technician - Primary Scrub - Primary Time In 01/20/19 10:17:00 01/20/19 10:17:00 Time Out 01/20/19 11:01:01/20/19 11:01:00 Procedure ANTROSTOMY TURBINECTOMY ANTROSTOMY TURBINECTOMY ETHMOIDECTOMY IM(.) ETHMOIDECTOMY IM(.) Comments Last Modified By: Ross Vivas RN, RN, Ross Kyle 01/20/19 11::01/20/19 11:01:27 Perioperative Protocols FT Pre-Care Text: Implements [...] DO, Jairo, Given Participants Simran JONES, Annelise , Sangeetha LESTER, Sage Saha RN, Jenna Vizcarra [...] and tissue Entry 1 Skin Integrity Intact, Cobb, Warm, and Outcomes Met? Yes Dry Last [...] Shoulder Roll(s) Press Points Checked Yes By Ross Vivas RN, Fennig Jr. DO, Gary, Farris RN, Linda Kyle Outcomes [...] Correct Time By Jenna NASSAR, Tawnya Shore, Jenna NASSAR, Tawnya Shore, Ross Vivas RN, RN, Karen M Outcomes Met? Yes Yes Last Modified By: [...] RN Patient Status Stable Skin. Condition Intact, Cobb, Warm, and Dry Airway Maintenance Oxygen in Use? Yes Airway Device Simple Mask Flow Rate 8 L Outcomes Met? Yes Last Modified By: Ross Vivas RN 01/20/19 10:32:03 Post-Care Text: The patient is free from signs and symptoms of injury related to transfer/transport General Comments: report to pacu nurse/ megan burner operator Administration FT Pre-Care Text: Verifies allergies, administers prescribed medications and solutions, administers prescribed antibiotic therapy and immunizing agents as ordered, evaluates response to medications Administers prescribed medications and solutions Entry 1 Expiration Date Yes Outcomes Met? Yes Verified Last Modified By: Ross Vivas RN 01/20/19 10:20:34 Post-Care Text: The patient received appropriate medication(s) safely administered during the perioperative period For [place]-Sam please see scanned medication reconcilliation form for medications used at the field during the procedure. Cultures and Specimens FT Pre-Care Text: Manages specimen handling and disposition Manages culture specimen collection Entry 1 Cultures Ordered No Specimens Ordered Yes Specimen Disposition Designated OR Area Frozen Section Times Outcomes Met? Yes Last Modified By: Ross Vivas RN 01/20/19 10:32:17 Post-Care Text: The patient is free from signs and symptoms of injury caused by extraneous objects The patient is free from signs and symptoms of infection Temperature Control Entry 1 Temperature Control BLANKET MISTRAL AIR Quantity 1 Aid PLUS LOWER BODY [[id number]][F] Fluid/[place] Unit Mistral warming system Setting 43 Body Site Lower anterior torso Last Modified By: Ross Vivas RN 01/20/19 09:41:59 Case Comments Finalized By: Deepti Auguste CST Document Signatures Signed By: Ross Vivas RN 01/20/19 11:01 Deepti Auguste CST 01/21/19 12:25 Normal [facility] B hCG Qualon 01-20-2019 Beta hCG Ql Negative Normal [facility] Comment on above: Performed By: #### 2 [id number] ####[facility] [address] [place] [address] Inpatient Patient Summaryon 01-20-2019 Inpatient Patient Summary [facility] Clinical Discharge Instructions PERSON INFORMATION Name: VICENTE SU Alanis PHYSICIANS Admitting Physician: Annelise Khalil MD Attending Physician: Annelise Khalil MD PCP: PAUL BROWN MD Discharge Diagnosis: Chronic ethmoidal sinusitis; Chronic maxillary sinusitis; Tonia bullosa Comment: PATIENT EDUCATION INFORMATION Instructions: Medication Leaflets: Follow up: With: Address: When: Annelise Khalil [address] [place] [address], [address] [place] [address] Business () In 8 days 01/28/2019 MEDICATION LIST Comment: Normal [facility] Main OR PACU I Recordon Main OR PACU I Record PACU Phase I Document Type FT Summary Primary Physician: Annelise Khalil MD Finalized Date/Time: 01/20/19 11:49:49 Pt. Name: SU ZHANGO.B./Sex: 1975 Female Med Rec #: [id number] Physician: Annelise Khalil MD Financial #: [id number] Pt. Type: A Room/Bed: [facility] Admit/Disch: 01/20/19 08:56:33 - Institution: Case Times [...] By: Rosa Chu RN 01/20/19 11:49 Normal [facility] Main OR PACU II Recordon Main OR PACU II Record PACU Phase II Document Type FT Summary Primary Physician: Annelise Khalil MD Finalized Date/Time: 01/20/19 13:19:04 Pt. Name: VICENTESU/Sex: 1975 Female Med Rec #: [id number] Physician: Annelise Khalil MD Financial #: [id number] Pt. Type: A Room/Bed: [place] [address] Admit/Disch: 01/20/19 08:56:33 - Institution: Case Times [...] Signed By: Scarlett Bermudez RN 01/20/19 13:19 [facility] Main OR Preoperative Recordo n 01-20-2019 Main OR Preoperative Record PreOp Document Type FT Summary Primary Physician: Annelise Khalil MD Finalized Date/Time: 01/20/19 10:32:39 Pt. Name: SU ZHANG /Sex: 1975 Female Med Rec #: [id number] Physician: Annelise Khalil MD Financial #: [id number] Pt. Type: Room/Bed: [facility]07/23 Admit/Disch: 01/20/19 08:56:33 - Institution: Case Times PreOp FT Pre-Care Text: Verifies consent for planned procedure, identifies individual values and wishes concerning care, includes family members in perioperative teaching Entry 1 Patient Times. In Pre Surgery 01/20/19 09:05:00 Out Pre Surgery 01/20/19 10:16:00 Outcomes Met? Yes Last Modified By: Rsos Vivas RN 01/20/19 10:32:36 Post-Care Text: The patient participates in decisions affecting his or her perioperative plan of care Finalized By: Ross Vivas RN Document Signatures Signed By: Ross Vivas RN 01/20/19 10:32 Normal [facility] Operative Reporton 9 Operative Report Patient: SU ZHANG Age: 43 years Sex: Female : 1975 Associated Diagnoses: None Author: Annelise Khalil MD Postoperative Information Procedure: Frederick MMA and r/o conchae, left ant etmoidectomy Preoperative Diagnosis: Chronic maxillary sinusitis (DQN64-XU J32.0, Working, Medical), Tonia bullosa (KKJ24-SH J34.89, Working, Medical), Chronic ethmoidal sinusitis (SRD92-BW J32.2, Working, Medical). Postoperative Diagnosis: Chronic maxillary sinusitis (DYW77-OG J32.0, Discharge, Medical), Tonia bullosa (OAS69-JB J34.89, Discharge, Medical), Chronic ethmoidal sinusitis (JAH54-WD J32.2, Discharge, Medical). Performed by: Annelise Khalil MD. Findings: frederick conchae, grossly normal sinus anatomy. Specimens Removed: l7r sinus contents. Estimated Blood Loss: 10 ml. Medications Complications: None. Normal [facility] Comment on above: Result Comment: Elec tronically Signed By: Annelise Khalil MD\.br\Date and Time Signed: 01/20/19 11:09 EDT Patient Education - Texton 0 01-20-2019 Patient Education - Text Normal [facility] Coding Summary.on 01-07-2019 Coding Summary. CODING DATE: 01/07/2019 FINAL [facility] STATUS: Home (Routine DC) PAYOR: [place] APC DESCRIPTION 5521 Level 1 Imaging without [...] CphT Date Saved: 01/07/2019 12:06 pm Normal [facility] Auto Diffon 01-04-2019 Basophils/100 WBC (Bld) 0.7 % Normal 0.0-2.0 [facility] Comment on above: Order Comment: Order Added by Discern Expert. Performed By: #### 2 281586, [id number], [id number] #### [facility] [address] [place] [address] Basophils/Leukocytes Auto (Bld) [Pure # fraction] 0.0 E9/L Normal 0.0-0.2 [facility] Comment on above: Order Comment: Order Added by Discern Expert. Performed By: #### 2 309897, 0876869, [id number] #### [facility] [address] [place] [address] 16941 Eosinophils/100 WBC (Bld) 7.3 % Normal 0.0-8.0 [facility] Comment on above: Order Comment: Order Added by Discern Expert. Performed By: #### 2 857163, [id number], [id number] #### [facility] [address] [place] [address]87 Eosinophils/Leukocyt es Auto (Bld) [Pure # fraction] 0.5 E9/L Normal 0.0-0.5 [facility] Comment on above: Order Comment: Order Added by Discern Expert. Performed By: #### 2 429539, 2219011, [id number] #### [facility] [address] [place] [address] 02339 Lymphocytes/100 WBC (Bld) 23.6 % Normal 14.0-50.0 [facility] Comment on above: Order Comment: Order Added by Discern Expert. Performed By: #### 2 281028, 3417834, [id number] #### [facility] [address] [place] [address]82 Lymphocytes/Leukocyt es Auto (Bld) [Pure # fraction] 1.8 E9/L Normal 1.0-4.0 [facility] Comment on above: Order Comment: Order Added by Discern Expert. Performed By: #### 2 354033, 1037607, [id number] #### [facility] [address] [place] [address] 69919 Monocytes/100 WBC (Bld) 6.4 % Normal 4.0-14.0 [facility] Comment on above: Order Comment: Order Added by Discern Expert. Performed By: #### 2 898532, 1402847, [id number] #### [facility] [address] [place] [address] 48663 Monocytes/Leukocytes Auto (Bld) [Pure # fraction] 0.5 E9/L Normal 0.2-1.0 [facility] Comment on above: Order Comment: Order Added by Discern Expert. Performed By: #### 2 061130, 9635587, [id number] #### [facility] [address] [place] [address] Neutrophils/100 WBC (Bld) 62.0 % Normal 36.0-75.0 [facility] Comment on above: Order Comment: Order Added by Discern Expert. Performed By: #### 2 066208, 1801405, [id number] #### [facility] [address] [place] [address] Neutrophils/Leukocyt es Auto (Bld) [Pure # fraction] 4.6 E9/L Normal 2.0-7.5 [facility] Comment on above: Order Comment: Order Added by Discern Expert. Performed By: #### 2 545033, 0602390, [id number] #### [facility] [address] [place] [address] 26286 BUNon 01-04-2019 Urea nitrogen [Mass/Vol] 10 mg/dL Normal 5-21 [facility] Comment on above: Performed By: #### 2 555012, 8010033, 63475763, [id number] #### [facility] [address] [place] [address] 17813 CBC w/ Auto Diffon 9 Erythrocyte distribution width (RBC) [Ratio] 12.9 % Normal 10.9-14.2 [facility] Comment on above: Performed By: #### 2 601076, 0311868, [id number] #### [facility] [address] [place] [address] 65162 Hematocrit (Bld) [Volume fraction] 41.7 % Normal 34.0-46.0 [facility] Comment on above: Performed By: #### 2 547537, 6917056, 29081438 #### [facility] [address] [place] [address] Hemoglobin (Bld) [Mass/Vol] 14.1 g/dL Normal 12.0-16.0 [facility] Comment on above: Performed By: #### 2 212541, 9972309, [id number] #### [facility] [address] [place] [address] MCH (RBC) [Entitic mass] 31.6 pg Normal 27.0-34.0 [facility] Comment on above: Performed By: #### 2 289645, 2009637, [id number] #### [facility] [address] [place] [address] MCHC (RBC) [Mass/Vol] 33.9 g/dL Normal 33.3-35.7 [facility] Comment on above: Performed By: #### 2 230564, 8270825, [id number] #### [facility] [address] [place] [address] MCV (RBC) [Entitic vol] 93.2 fL Normal 80.0-100.0 [facility] Comment on above: Performed By: #### 2 880572, 5402252, 80327955 #### [facility] [address] [place] [address]3550 Platelet mean volume (Bld) [Entitic vol] 7.3 fL Normal 6.4-10.8 [facility] Comment on above: Performed By: #### 2 233889, 5421419, [id number] #### [facility] [address] [place] [address]191 Platelets (Bld) [#/Vol] 361.0 E9/L Normal 150.0-500.0 [facility] Comment on above: Performed By: #### 2 288777, 9321753, 81651840 #### [facility] [address] [place] [address] 39087 RBC (Bld) [#/Vol] 4.5 E12/L Normal 4.3-5.9 [facility] Comment on above: Performed By: #### 2 268678, 1006471, [id number] #### [facility] [address] [place] [address] WBC corrected for nucl RBC Auto (Bld) [#/Vol] 7.4 E9/L Normal 4.0-11.0 [facility] Comment on above: Performed By: #### 2 132093, 5996365, 27318892 #### [facility] [address] [place] [address] Creatinineon 01-04-2019 Creatinine [Mass/Vol] 0.6 mg/dL Normal 0.5-1.3 [facility] Comment on above: Performed By: #### 2 526877, 0792914, 47515277, 5388307 #### [facility] [address] [place] [address] Lyteson 01-04-2019 Anion gap [Moles/Vol] 17 mmol/L High 6-16 [facility] Comment on above: Performed By: #### 2 325517, 1340199, 75549467, 4550379 #### [facility] [address] [place] [address] Chloride [Moles/Vol] 105 mmol/L Normal 101-111 [facility] Comment on above: Performed By: #### 2 860640, 4112530, 28917728, 7769678 #### [facility] [address] [place] [address] CO2 [Moles/Vol] 21 mmol/L Normal 21-31 [facility] Comment on above: Performed By: #### 2 329869, 1712413, 66363044, 4994913 #### [facility] [address] [place] [address] Potassium [Moles/Vol] 3.6 mmol/L Normal 3.5-5.3 [facility] Comment on above: Performed By: #### 2 937201, 2908724, 27806122, 1337325 #### [facility] [address] [place] [address] Sodium [Moles/Vol] 139 mmol/L Normal 135-145 [facility] Comment on above: Performed By: #### 2 851665, 2276854, 82865746, 6004594 #### [facility] [address] [place] [address] PT & PTTon 01-04-2019 aPTT Coag (PPP) [Time] 27.9 second(s) Normal 25.1-36.5 [facility] Comment on above: Result Comment: Hepa rin therapeutic range (represented by Anti-Factor Xa activity of 0.2 - 0.4 U/mL) corresponds to PTT of 56.6 - 109.0 sec. Performed By: #### 2 330563, 4565792, [id number] #### [facility] [address] [place] [address] INR Coag (PPP) [Relative time] 1.0 {INR} [facility] Comment on above: Result Comment: INR results are specifically intended to assess patients stabilized on long-term Anticoagulation therapy suggested INR?s ?Less Intensive Anticoagulation? 2.0 ? 3.0 Conventional Range 3.0 ? 4.5 Performed By: #### 2 758598, 5612204, 25448483 #### [facility] [address] [place] [address] PT Coag (PPP) [Time] 10.6 second(s) Normal 10.2-12.9 [facility] Comment on above: Performed By: #### 2 511323, 5858553, 75127125 #### [facility] [address] [place] [address] XR Chest 2 Viewson 9 XR Chest [...] M.D. Transcribed by: JEANA Technologist: ANNAMARIE Fitch [facility] eGFRon 01-04-2019 GFR/1.73 sq M predicted among blacks MDRD (S/P/Bld) [Vol rate/Area] mL/min/{1.73_m2} Normal >=59 [facility] Comment on above: Order Comment: Order added by Discern Expert. Result Comment: eGFR is race adjusted. AA=. Performed By: #### 2 812725, 2132081, 13484481, 5283491 #### [facility] [address] [place] [address] GFR/1.73 sq M predicted among non-blacks MDRD (S/P/Bld) [Vol rate/Area] mL/min/{1.73_m2} Normal >=59 [facility] Comment on above: Order Comment: Order added by Discern Expert. Result Comment: Social Services Aide justus kidney disease could be indicated at eGFR's of less than 60 mL/min/1.73m2. Kidney failure is indicated at less than 15 mL/min/1.73m2. Performed By: #### 2 [id number] #### [facility] [address] [place] [address] Coding Summary.on 11-17-2018 Coding Summary. CODING DATE: 11/17/2018 FINAL [facility] STATUS: Home (Routine DC) PAYOR: Cecile APC [...] CphT Date Saved: 11/17/2018 12:08 pm Normal [facility] CT Maxillofacial w/o Contras ton 11-16-2018 CT [...] Morataya MD Transcribed by: JEANA Technologist: EMILEE Fitch [facility] Encounters Encounter Date Encounter Type Care Provider Facility Start: 06-10-2024 End: 06-10-2024 ambulatory [facility] Start: 09-30-2023 End: 09-30-2023 ambulatory LINDA CHOUDHURY Not Available Start: 09-14-2023 End: 09-14-2023 ambulatory LINDA CHOUDHURY Not Available Start: 06-26-2023 End: 06-26-2023 ambulatory [facility] Start: 04-30-2022 End: 05-01-2022 ambulatory KALA MARCUS Facility:[facility] Start: 04-01-2022 End: 04-01-[address] BRAULIO WALTER Facility:[facility] Start: 02-17-2022 End: 02-18-[address] BRAULIO WALTER Facility: Start: 11-03-2017 End: 11-04-2017 Ambulatory DEFAULT PHYSICIAN Facility:[facility] Start: 10-30-2017 End: 10-31-2017 Ambulatory DEFAULT PHYSICIAN Facility:[facility] Procedures Date Procedure Procedure Detail Performing Clinician Start: 01-24-2019 Anesthesia consultation Start: 01-20-2019 Anesthesia consultation Payers Date Payer Category Payer Unknown [id number] 2022 Unknown [id number] 1975 Unknown [id number] 2.16.84 [id number] 1977 Unknown [id number] 2.16.84 [id number] 1977 Unknown [id number] 2.16.84 [id number] 1977 Unknown [id number] 2.16.84 [id number] 1977 Unknown [id number] 2.16.84 [id number] 1957 Private Health Insurance [id number] Unknown Progress note 06-10-2024 Note Date & Type Note Facility 06-10-2024 Note [place] [facility] Subjective Su Zhang is a 48 y.o. year old female patient being seen for Hypertension (Had routine labs with lipid panel in September 2023 and again in Mar. HR has been running high 80's to low 100's. ) and Dizziness (Denies chest pain, SOB, and palpitations. Gets lightheaded at times. BP has been up and down. ) Patient Active Problem List Diagnosis Essential hypertension Headache Lightheadedness Palpitations Tachycardia Abnormal mammogram Anxiety Chronic sinusitis Esophageal stricture Idiopathic scoliosis and kyphoscoliosis Pancreatic cyst Reflux esophagitis Seasonal allergic rhinitis Seasonal allergies Tension headache Thyroid enlargement Vitamin D deficiency HPI Patient was seen in the past by . She had palpitation due to sinus tachycardia and hypertension. She is here today for follow-up visit. She states that overall she has been doing well. She states that her palpitations are much better and she rarely feels them when she is stressed out. She denies any chest pain or shortness of breath at rest or with exertion. She denies orthopnea or paroxysmal nocturnal dyspnea or dizziness or legs edema or leg discomfort on exertion. She reports feeling foggy or weird in the head when her blood pressure is up She admits mild snoring. She never been told that she stops breathing during the night. She does not feel sleepy or tired during the daytime. She takes ankp-idt-bgaeejg medication to help her with sleeping and usually she has good sleep She brought her home blood pressure log and her blood pressure appears to be frequently on the high side with systolic in the 140s and most important diastolic in the high 80s to 90s ROS All systems were reviewed and they were negative except for the positive findings noted above in the history Past Medical History: Diagnosis Date Arrhythmia Hyperlipidemia Hypertension Past Surgical History: Procedure Laterality Date BACK SURGERY 06/22/1994 ENDOMETRIAL ABLATION 03/22/2019 EYE SURGERY SINUS SURGERY Family History Problem Relation Name Age of Onset Diabetes Brother Hypertension Maternal Grandmother Hyperlipidemia Maternal Grandfather Diabetes Maternal Grandfather Social History Tobacco Use Smoking status: Never Smokeless tobacco: Never Substance Use Topics Alcohol use: Yes Comment: occasional Drug use: Never Allergies No Known Allergies Medications Current Outpatient Medications: biotin 2,500 mcg capsule, Take by mouth., Disp: , Rfl: dilTIAZem CD (Cardizem CD) 120 mg 24 hr capsule, TAKE 1 CAPSULE (120 MG) BY MOUTH IN THE MORNING, Disp: 90 capsule, Rfl: 1 loratadine (Claritin) 10 mg tablet, Take 10 mg by mouth in the morning., Disp: , Rfl: omeprazole (PriLOSEC) [address] capsule, Take 1 tablet by mouth in the morning., Disp: , Rfl: metoprolol succinate XL (Toprol-XL) 100 mg 24 hr tablet, Take 1 tablet (100 mg) by mouth in the morning., Disp: 30 tablet, Rfl: 11 Objective Visit Vitals BP 128/80 (BP Location: Left arm, Patient Position: Sitting) Pulse 94 Ht 1.702 m (5' 7 ) Wt 86.2 kg (190 lb) SpO2 97% BMI 29.76 kg/m??? Smoking Status Never BSA 2.02 m??? Physical exam: GENERAL: alert and oriented x3, well developed, in no acute distress. HEAD: atraumatic, normocephalic. EYES: OWEN, EOMI. NECK: trachea midline, no JVD present, no carotid bruits present. CARDIAC: S1, S2 present. RRR. No murmur, rubs, or gallops. RESPIRATORY: CTAB, no increased effort of breathing, no rales, rhonchi, or wheezing. ABDOMEN: soft, nontender, nondistended. EXTREMITIES: no lower extremity edema,. No rash/skin discoloration present. NEURO: strength/sensation equal and symmetric in bilateral upper and lower extremities. PSYCH: appropriate mood, affect, and judgement. Recent Labs 04/07/2024 White blood count 7.7, hemoglobin 14.8, hematocrit 44, platelets 371 Sodium 141, potassium 4.1, BUN 12, creatinine 0.9, GFR above 60, glucose 88, HbA1c 5.3% Calcium 10.2 Total bilirubin 0.3, AST 31, ALT 52, alk phos 87, total protein 8.1, albumin 4.2 Triglyceride 98, cholesterol 210, LDL 133, HDL 58 TSH 1.184 Imaging and other tests EK04/18/2019 showed normal sinus rhythm, incomplete right bundle branch block, normal EKG Echo: 04/30/22 Echo Echo 11/03/2017 Global left ventricular systolic function is normal (Visually estimated EF 65-70%). No regional wall motion abnormality. Normal right ventricular systolic function. Doppler studies suggest normal right sided pressures. No significant valvular abnormalities 30-day event monitor 03/24/2022 - 04/22/2022 Normal sinus rhythm, sinus tachycardia 11% of the time No A-fib Assessment/Plan Palpitations due to sinus tachycardia Patient is on Toprol-XL and Cardizem, doing well Essential hypertension, on Cardizem CD1 20 mg daily and metoprolol XL 50 mg daily, not optimall (more content not included)... [facility] Progress note 06-26-2023 Note Date & Type Note Facility 06-26-2023 Note Patient here for 1 y ear follow up hypertension and palpitations. Denies chest pain. [facility] Progress note 06-26-2023 Note Date & Type [...] as needed. Kala Marcus MD Interventional Cardiology [facility] Summary Purpose Family History No Family History Records FoundNo Family History Records FoundNo Family History Records FoundNo Family History Records FoundNo Family History Records Found Advance Directives No Advanced Directives Records FoundNo Advanced Directives Records FoundNo Advanced Directives Records FoundNo Advanced Directives Records FoundNo Advanced Directives Records Found Additional Source Comments INFORMATION SOURCE (unrecogn ized section and content) DATE CREATED AUTHOR 12/09/2017 [facility] DATE CREATED AUTHOR AUTHOR'S ORGANIZ ATION 01/28/2019 Yusef Vargas [facility] DATE CREATED AUTHOR AUTHOR'S ORGANIZ ATION 05/04/2022 [facility] DATE CREATED AUTHOR AUTHOR'S ORGANIZ ATION 10/01/2023 [facility] DATE CREATED AUTHOR AUTHOR'S ORGANIZ ATION 06/13/2024 [facility] FOR RECORDS PERTAINING TO PATIENTS WHO ARE [...] BE BASED ON THE PRIMARY CLINICAL RECORDS. [employer] [facility]. provides no warranty or guarantee of the accuracy or completeness of information in this document.
[2024-09-17 08:10] LABS: Alanine Aminotransferase 57 U/L (14-59); Aspartate Amino Transferase 36 U/L (15-37); Chol HDL Ratio 3.8; Cholesterol 181 mg/dL (<=200); HDL Cholesterol 48 mg/dL (40-60); Triglycerides 120 mg/dL (<=150)
== END 2024-09-17 07:25 | disposition home or self-care (01) ==
LOC: LAB 07:26
PROVIDERS: PCP Family Medicine; Visit Provider Internal Medicine Cardiovascular Disease
DX: E78.00 Pure hypercholesterolemia, unspecified (principal)
CPT/HCPCS: 36415; 80061; 84450; 84460

== ENCOUNTER 2025-02-24 07:20 | Outpatient (OUT) | payer BC, SELFPAY ==
--- OUTSIDE RECORDS SUMMARY | 2025-02-24 07:23 | XMS_ITS | CCD ---
Author Organization [facility] Care Team Providers Care Entry Level Manager Name Role Phone PHYSICIAN, DEFAULT Unavailable Unavailable PHYSICIAN, DEFAULT Unavailable Unavailable PHYSICIAN, DEFAULT Unavailable Unavailable PHYSICIAN, DEFAULT Unavailable Unavailable ALDA CHURCH Admitting Unavailable ALDA CHURCH Attending Unavailable STEPHANIE, DR MILLER Primary Care Unavailable ALDA CHURCH Consulting Unavailable KARASIK, DR RAMSEY Admitting Unavailable KARASIK, DR RAMSEY Attending Unavailable STEPHANIE, DR MILLER Primary Care Unavailable KARASIK, DR RAMSEY Consulting Unavailable WEST, DR CRISPIN Graham Consulting Unavailable KARASIK, DR RAMSEY Admitting Unavailable KARASIK, DR RAMSEY Attending Unavailable STEPHANIE, DR MILLER Primary Care Unavailable KARASIK, DR RAMSEY Consulting Unavailable Dionna Brown MD Primary Care Provider IVETT ROD Attending Unavailable IVETT ROD Attending Unavailable RENNY ALBERT Attending Unavailable LINDA CHOUDHURY Referring Unavailable LINDA CHOUDHURY Referring Unavailable RENNY ALBERT Referring Unavailable RENNY ALBERT Attending Unavailable LINDA CHOUDHURY Attending Unavailable Asaad Imad Attending Unavailable Asaad Imad Admitting Unavailable Dionna Brown Primary Care Unavailable Allergies Allergy Classification Reported Allergen(s) Allergy Type Date of Onset Reaction(s) Facility (10 sources) Other Allergy to substance 06-11-2023 [facility] Medications Current Medications Medication Drug Class(es) Dates Sig (Normalized) Sig (Original) cetirizine hydrochloride 10 mg oral tablet (10 sources) Histamine-1 Receptor Antagonist take 1 tablet by mouth every twenty-four hours as needed cetirizine (ZyrTEC) 10 MG tablet Take 1 tablet by mouth Daily as needed Active cholecalciferol 0.05 mg oral capsule (3 sources) Vitamin D Start: 10-22-19 25 End: 10-22-19 26 take 1 capsule by mouth once daily cholecalciferol (Vitamin D-3) 50 MCG (1999 UT) capsule Indications: Vitamin D deficiency Take 1 capsule (50 mcg) by mouth Daily 90 capsule 3 10/21/2024 10/21/2025 Active 24 hr dilTIAZem hydrochloride 120 mg extended release oral capsule (10 sources) Calcium Channel Jayce Start: 05-07-20 23 take 1 capsule by mouth every twenty-four hours in the morning dilTIAZem CD (Cardizem CD) 120 MG 24 hr capsule TAKE 1 CAPSULE (120 MG) BY MOUTH IN THE MORNING 05/07/2023 Active fluticasone propionate 0.05 mg/actuat metered dose nasal spray (10 sources) Corticosteroid take 2 spray(s) nasal route once daily fluticasone (Flonase) 50 MCG/ACT nasal spray INSTILL 2 SPRAY INTO EACH NOSTRIL ONCE DAILY for 30 Active methylPREDNISolone (5 sources) Corticosteroid Start: 10-14-19 25 methylPREDNISolone (Medrol Dospak) 4 MG tablets Indications: Capsulitis of metatarsophalangeal (MTP) joint of right foot Follow schedule on MEDROL PACK package instructions to be used as directed 21 tablet 10/13/2024 Active 24 hr metoprolol succinate 100 mg extended release oral tablet (12 sources) beta-Adrenergic Jayce take 1 tablet by mouth once daily metoprolol succinate XL (Toprol-XL) 100 MG 24 hr tablet Take 100 mg by mouth Daily Do not crush or chew. Active End: 10-04-2024 take 1 tablet by mouth every twenty-four hours in the morning metoprolol succinate XL (Toprol-XL) 50 MG 24 hr tablet Take 50 mg by mouth in the morning. 10/04/2024 Discontinued (Dose adjustment) Multiple Vitamins-Minerals (HAIR SKIN & NAILS PO) (10 sources) take 1 tablet by mouth once daily Multiple Vitamins-Minerals (HAIR SKIN & NAILS PO) Take 1 tablet by mouth 1 (one) time each day Active omeprazole 40 mg delayed release oral capsule (10 sources) Proton Pump Inhibitor Start: 025 take 1 capsule by mouth once daily omeprazole (PriLOSEC) [address] capsule Indications: Gastroesophageal reflux disease with esophagitis, unspecified whether hemorrhage TAKE 1 CAPSULE BY MOUTH EVERY DAY 100 capsule 3 10/17/2024 Active Start: 09-15-2024 take 1 capsule by mo [facility] once daily omeprazole (PriLOSEC) [address] capsule Indications: Gastroesophageal reflux disease with esophagitis, unspecified whether hemorrhage TAKE 1 CAPSULE BY MOUTH EVERY DAY 30 capsule 09/15/2024 Active Completed/Discontinued Medications Medication Drug Class(es) Dates Sig (Normalized) Sig (Original) Apple Kareem Vn-Grn Tea-Bit Or-Cr (APPLE CIDER VINEGAR PLUS PO) (4 sources) End: 10-04-2024 take 1 tablet by mouth once daily Apple Kareem Vn-Grn Tea-Bit Or-Cr (APPLE CIDER VINEGAR PLUS PO) Take 1 tablet by mouth Daily 10/04/2024 Discontinued (Other) take 1 tablet by mouth once nathalie y Apple Kareem Vn-Grn Tea-Bit Or-Cr (APPLE CIDER VINEGAR PLUS PO) Take 1 tablet by mouth Daily Active Problems Active Problems Problem Classification Problem Date Documented Date Episodic/Chronic Anxiety disorders (20 sources) Anxiety; Translations: [Anxiety disorder, unspecified] Onset: 7 06-11-2023 Chronic Disorders of lipid metabolism (12 sources) Pure hypercholesterolemia, unspecified; Translations: [Mixed hyperlipidemia] Onset: 4 Chronic Esophageal disorders (20 sources) Stricture of esophagus; Translations: [Esophageal obstruction] Onset: 7 06-11-2023 Chronic Essential hypertension (14 sources) Essential hypertension; Translations: [Essential (primary) hypertension] Onset: 7 06-11-2023 Chronic Headache; including migraine (12 sources) Tension-type headache; Translations: [Tension-type headache, unspecified, not intractable] Onset: 6 06-11-2023 Chronic Immunizations and screening for infectious disease (1 source) Encounter for screening for human papillomavirus (HPV); Translations: [ENC SCREENING HUMAN PAPILLOMAVIRUS] Onset: 2 Episodic Neoplasms of unspecified nature or uncertain behavior (4 sources) Neoplasm of uncertain behavior of skin; Translations: [Neoplasm of uncertain behavior of skin] 10-04-2024 Episodic Nutritional deficiencies (12 sources) Vitamin D deficiency; Translations: [Vitamin D deficiency, unspecified] Onset: 3 06-11-2023 Chronic Other acquired deformities (4 sources) Deformity of metatarsal; Translations: [Unspecified acquired deformity of right lower leg] 10-13-2024 Episodic Other bone disease and musculoskeletal deformities (12 sources) Idiopathic kyphoscoliosis; Translations: [Other idiopathic scoliosis, site unspecified] Onset: 8 06-11-2023 Chronic Other connective tissue disease (4 sources) Capsulitis of metatarsophalangeal joint of right foot; Translations: [Other enthesopathy of right foot and ankle] 10-13-2024 Episodic Other liver diseases (3 sources) Steatosis of liver; Translations: [Fatty (change of) liver, not elsewhere classified] Onset: 5 10-26-2024 Chronic Other nutritional; endocrine; and metabolic disorders (2 sources) Other obesity due to excess calories; Translations: [Other obesity due to excess calories] Onset: 5 Chronic Other nutritional; endocrine; and metabolic disorders (2 sources) Body mass index (BMI) 30.0-30.9, adult; Translations: [Body mass index (BMI) 30.0-30.9, adult] Onset: 5 Chronic Other nutritional; endocrine; and metabolic disorders (10 sources) Obesity caused by energy imbalance; Translations: [Class 1 obesity due to excess calories without serious comorbidity with body mass index (BMI) of 30.0 to 30.9 in adult] Onset: 5 10-04-2024 Chronic Other nutritional; endocrine; and metabolic disorders (2 sources) Weight increased; Translations: [Abnormal weight gain] 10-05-2024 Episodic Other screening for suspected conditions (not mental disorders or infectious disease) (20 sources) Encounter for screening for malignant neoplasm of cervix; Translations: [Encounter for screening mammogram for malignant neoplasm of breast] Onset: 8 Episodic Other skin disorders (2 sources) Mass of skin; Translations: [Localized swelling, mass and lump, unspecified] 10-05-2024 Episodic Other upper respiratory disease (10 sources) Seasonal allergic rhinitis; Translations: [Other seasonal allergic rhinitis] Onset: 0 06-11-2023 Chronic Other upper respiratory disease (2 sources) Allergic rhinitis due to pollen; Translations: [Allergic rhinitis due to pollen] 10-04-2024 Chronic Other upper respiratory infections (20 sources) Chronic pansinusitis; Translations: [Chronic pansinusitis] Onset: 9 Resolved: 4 06-11-2023 Chronic Residual codes; unclassified (2 sources) Family history of cancer; Translations: [Family history of malignant neoplasm, unspecified] 10-04-2024 Episodic Thyroid disorders (12 sources) Goiter; Translations: [Nontoxic goiter, unspecified] Onset: 3 06-11-2023 Chronic Unclassified (3 sources) OTHER VENTRICULAR TACHYCARDIA; Translations: [OTHER VENTRICULAR TACHYCARDIA] Onset: 2 Unclassified (1 source) Obesity, class 1; Translations: [Obesity, class 1] Onset: 5 Unclassified (2 sources) Patient encounter status 10-04-2024 Past or Other Problems Problem Classification Problem Date Documented Da te Episodic/Chronic Cardiac dysrhythmias (20 sources) Palpitations; Translations: [Palpitations] Onset: 11-03-2017 06-11-2023 Episodic Conditions associated with dizziness or vertigo (10 sources) Lightheadedness; Translations: [Dizziness and giddiness] Onset: 11-03-2017 Resolved: 10-04-2024 06-11-2023 Episodic Headache; including migraine (10 sources) Headache; Translations: [Headache] Onset: 06-16-2019 Resolved: 09-30-2023 09-30-2023 Episodic Other upper respiratory disease (10 sources) Seasonal allergy; Translations: [Other seasonal allergic rhinitis] Onset: 06-11-2023 Resolved: 09-30-2023 09-30-2023 Chronic Pancreatic disorders (not diabetes) (14 sources) Cyst of pancreas; Translations: [Cyst of pancreas] Onset: 11-26-2017 Resolved: 10-26-2024 06-11-2023 Episodic Unclassified (1 source) OTHER VENTRICULAR TACHYCARDIA; Translations: [OTHER VENTRICULAR TACHYCARDIA] Onset: 04-30-2022 Unclassified (1 source) Obesity, class 1; Translations: [Obesity, class 1] Onset: 09-19-2024 Results Test Name Value Interpretation Reference Range Facility HCG,Urineon 11-04-2024 Beta HCG ( test) Ql (U) Negative Normal [facility] Comment on above: Result Comment: PERF ORMED BY: [facility] [address] [place] [address] PATHOLOGIST PHOTOGRAPHIC ENGINEER PILY WEBB M.D. Performed By: #### [place] [facility] [place] [facility] [address] BASIC METABOLIC PANELon 05-0 BUN/CREATININE RATIO SEE NOTE: Normal 6-22 [facility] Comment on above: Order Comment: FASTI NG:YES FASTING: YES Result Comment: Not Reported: BUN and Creatinine are within reference range. Performed By: #### 2 9256, 41363, 08706, 49221, 6399 #### [facility] [address], [address] [place] [address] Regional Education Manager: Jp Carreon MD Calcium [Mass/Vol] 9.2 mg/dL Normal 8.6-10.2 [facility] Comment on above: Order Comment: FASTI NG:YES FASTING: YES Performed By: #### 2 9256, 47932, 35244, 50227, 6399 #### [facility] [address], [address] [place] [address] Regional Education Manager: Jp Carreon MD Chloride [Moles/Vol] 101 mmol/L Normal 98-110 [facility] Comment on above: Order Comment: FASTI NG:YES FASTING: YES Performed By: #### 2 9256, 19358, 71741, 33580, 6399 #### [facility] [place] [address] Regional Education Manager: Jp Carreon MD CO2 [Moles/Vol] 26 mmol/L Normal 20-32 [facility] Comment on above: Order Comment: FASTI NG:YES FASTING: YES Performed By: #### 2 9256, 19940, 79677, 50203, 6399 #### [facility] [place] [address] Regional Education Manager: Jp Carreon MD Creatinine [Mass/Vol] 0.66 mg/dL Normal 0.50-0.99 [facility] Comment on above: Order Comment: FASTI NG:YES FASTING: YES Performed By: #### 2 9256, 15025, 14176, 47825, 6399 #### [facility] [address], [address] [place] [address] Regional Education Manager: Jp Carreon MD GFR/1.73 sq M.predicted among non-blacks MDRD (S/P/Bld) [Vol rate/Area] 109 mL/min/{1.73_m2} Normal > OR = 60 [facility] Comment on above: Order Comment: FASTI NG:YES FASTING: YES Performed By: #### 2 9256, 61799, 68653, 01694, 6399 #### [facility] [place] [address] Regional Education Manager: Jp Carreon MD Glucose [Mass/Vol] 75 mg/dL Normal 65-99 [facility] Comment on above: Order Comment: FASTI NG:YES FASTING: YES Result Comment: Fasting reference interval Performed By: #### 2 9256, 98798, 36197, 92758, 6399 #### [facility] [place] [address] Regional Education Manager: Jp Carreon MD Potassium [Moles/Vol] 3.9 mmol/L Normal 3.5-5.3 [facility] Comment on above: Order Comment: FASTI NG:YES FASTING: YES Performed By: #### 2 9256, 16425, 39052, 00966, 6399 #### [facility] [place] [address] Regional Education Manager: Jp Carreon MD Sodium [Moles/Vol] 139 mmol/L Normal 135-146 [facility] Comment on above: Order Comment: FASTI NG:YES FASTING: YES Performed By: #### 2 9256, 77763, 27528, 82692, 6399 #### [facility] [place] [address] Regional Education Manager: Jp Carreon MD Urea nitrogen [Mass/Vol] 13 mg/dL Normal 7-25 [facility] Comment on above: Order Comment: FASTI NG:YES FASTING: YES Performed By: #### 2 9256, 60843, 98079, 94089, 6399 #### [facility] [place] [address] Regional Education Manager: Jp Carreon MD CA 125on 10-20-2024 [place] 125 16 U/mL Normal <35 [facility] Comment on above: Result Comment: This test was performed using the Siemens Chemiluminescent method. Values obtained from different assay methods cannot be used interchangeably. [place] 125 levels, regardless of value, should not be interpreted as absolute evidence of the presence or absence of disease. Performed By: #### 2 9256, 52697, 13357, 67612, 6399 #### [facility] [place] [address] Regional Education Manager: Jp Carreon MD CBC (INCLUDES DIFF/PLT)on Basophils (Bld) [#/Vol] 0.086 10*3/uL Normal 0-200 [facility] Comment on above: Performed By: #### 2 9256, 83169, 70209, 15776, 6399 #### [facility] [place] [address] Regional Education Manager: Jp Carreon MD Basophils/100 WBC (Bld) 0.6 % Normal [facility] Comment on above: Performed By: #### 2 9256, 05318, 80048, 66131, 6399 #### [facility] [place] [address] Regional Education Manager: Jp Carreon MD Eosinophils (Bld) [#/Vol] 0.288 10*3/uL Normal 15-500 [facility] Comment on above: Performed By: #### 2 9256, 33375, 90128, 99590, 6399 #### [facility] [place] [address] Regional Education Manager: Jp Carreon MD Eosinophils/100 WBC (Bld) 2.0 % Normal [facility] Comment on above: Performed By: #### 2 9256, 46868, 58082, 36734, 6399 #### [facility] of [place] [address] Regional Education Manager: Jp Carreon MD Erythrocyte distribution width (RBC) [Ratio] 12.4 % Normal 11.0-15.0 [facility] Comment on above: Performed By: #### 2 9256, 41697, 47996, 84835, 6399 #### [facility] [place] [address] Regional Education Manager: Jp Carreon MD Hematocrit (Bld) [Volume fraction] 44.1 % Normal 35.0-45.0 [facility] Comment on above: Performed By: #### 2 9256, 34136, 67170, 23101, 6399 #### [facility] [place] [address] Regional Education Manager: Jp Carreon MD Hemoglobin (Bld) [Mass/Vol] 14.6 g/dL Normal 11.7-15.5 [facility] Comment on above: Performed By: #### 2 9256, 77283, 05816, 96166, 6399 #### [facility] [place] [address] Regional Education Manager: Jp Carreon MD Lymphocytes (Bld) [#/Vol] 6.682 10*3/uL High 850-3900 [facility] Comment on above: Performed By: #### 2 9256, 64798, 04168, 88945, 6399 #### [facility] [place] [address] Regional Education Manager: Jp Carreon MD Lymphocytes/100 WBC (Bld) 46.4 % Normal [facility] Comment on above: Performed By: #### 2 9256, 86261, 95187, 79301, 6399 #### [facility] [place] [address] Regional Education Manager: Jp Carreon MD MCH (RBC) [Entitic mass] 31.7 pg Normal 27.0-33.0 [facility] Comment on above: Performed By: #### 2 9256, 31890, 90092, 92159, 6399 #### [facility] [place] [address] Regional Education Manager: Jp Carreon MD MCHC (RBC) [Mass/Vol] 33.1 g/dL Normal 32.0-36.0 [facility] Comment on above: Result Comment: For adults, a slight decrease in the calculated MCHC value (in the range of 30 to 32 g/dL) is most likely not clinically significant; however, it should be interpreted with caution in correlation with other red cell parameters and the patient's clinical condition. Performed By: #### 2 9256, 71369, 21495, 46615, 6399 #### [facility] [place] [address] Regional Education Manager: Jp Carreon MD MCV (RBC) [Entitic vol] 95.9 fL Normal 80.0-100.0 [facility] Comment on above: Performed By: #### 2 9256, 37822, 81933, 78797, 6399 #### [facility] [place] [address] Regional Education Manager: Jp Carreon MD Monocytes (Bld) [#/Vol] 0.864 10*3/uL Normal 200-950 [facility] Comment on above: Performed By: #### 2 9256, 24217, 09421, 14170, 6399 #### [facility] [place] [address] Regional Education Manager: Jp Carreon MD Monocytes/100 WBC (Bld) 6.0 % Normal [facility] Comment on above: Performed By: #### 2 9256, 25146, 56551, 09498, 6399 #### [facility] [place] [address] Regional Education Manager: Jp Carreon MD Neutrophils (Bld) [#/Vol] 6.48 10*3/uL Normal 1508-3182 [facility] Comment on above: Performed By: #### 2 9256, 00475, 89622, 25671, 6399 #### [facility] of [address], [address] [place] [address] Regional Education Manager: Jp Carreon MD Neutrophils/100 WBC (Bld) 45 % Normal [facility] Comment on above: Performed By: #### 2 9256, 80393, 90480, 02045, 6399 #### [facility] of [address], [address] [place] [address] Regional Education Manager: Jp Carreon MD Platelet mean volume (Bld) [Entitic vol] 8.6 fL Normal 7.5-12.5 [facility] Comment on above: Performed By: #### 2 9256, 28584, , 05872, 6399 #### [facility] of [address], [address] [place] [address] Regional Education Manager: Jp Carreon MD Platelets (Bld) [#/Vol] 387 10*3/uL Normal 140-400 [facility] Comment on above: Performed By: #### 2 9256, 42024, , 51767, 6399 #### [facility] [place] [address] Regional Education Manager: Jp Carreon MD RBC (Bld) [#/Vol] 4.60 10*6/uL Normal 3.80-5.10 [facility] Comment on above: Performed By: #### 2 9256, 44515, , 32271, 6399 #### [facility] [place] [address] Regional Education Manager: Jp Carreon MD WBC (Bld) [#/Vol] 14.4 10*3/uL High 3.8-10.8 [facility] Comment on above: Performed By: #### 2 9256, 78886, 95388, 44038, 6399 #### [facility] [place] [address] Regional Education Manager: Jp Carreon MD CEAon 10-20-2024 CEA <2.0 Normal See Note: [facility] Comment on above: Result Comment: Refe rence Range: Non-Smoker: <2.5 Smoker: <5.0 This test was performed using the Siemens chemiluminescent method. Values obtained from different assay methods cannot be used interchangeably. CEA levels, regardless of value, should not be interpreted as absolute evidence of the presence or absence of disease. Performed By: #### 2 9256, 07465, 79744, 07584, 6399 #### [facility] [address], [address] [place], [place] [id number] Regional Education Manager: Jp Carreon MD ESTRADIOLon 10-20-2024 ESTRADIOL 68 pg/mL Normal [facility] Comment on above: Result Comment: Refe rence Range Follicular Phase: 19-144 Mid-Cycle: 64-357 Luteal Phase: 56-214 Postmenopausal: < or = 31 Reference range established on post-pubertal patient population. No pre-pubertal reference range established using this assay. For any patients for whom low Estradiol levels are anticipated (e.g. males, pre-pubertal children and hypogonadal/post-menopausal females), the [facility] Estradiol, Ultrasensitive, LCMSMS assay is recommended (order code [id number]). Please note: patients being treated with the drug fulvestrant (Faslodex(R)) have demonstrated significant interference in immunoassay methods for estradiol measurement. The cross reactivity could lead to falsely elevated estradiol test results leading to an inappropriate clinical assessment of estrogen status. [employer] order code [id number], Ultrasensitive LC/MS/MS demonstrates negligible cross reactivity with fulvestrant. Performed By: #### 4 70, 4021 #### [facility] [address], [address] [place], [place] [id number] Regional Education Manager: Jp Carreon MD FSHon 10-20-2024 FSH 39.3 mIU/mL Normal [facility] Comment on above: Order Comment: FASTI NG:YES FASTING: YES Result Comment: Refe rence Range Follicular Phase 2.5-10.2 Mid-cycle Peak 3.1-17.7 Luteal Phase 1.5- 9.1 Postmenopausal 23.0-116.3 Performed By: #### 4 70, 4021 #### [facility] [address], [address] [place], [place] [phone] Regional Education Manager: Jp Carreon MD TSH W/REFLEX TO FT4on 2024 TSH W/REFLEX TO FT4 2.22 mIU/L Normal [facility] Comment on above: Result Comment: Refe rence Range > or = 20 Years 0.40-4.50 Ranges First trimester 0.26-2.66 Second trimester 0.55-2.73 Third trimester 0.43-2.91 Performed By: #### 2 9256, 52772, 00199, 34012, 6399 #### [facility] [address] [facility], [address] [place] [phone] Regional Education Manager: Jp Carreon MD VITAMIN D,25-OH,TOTAL,IAon 0 10-20-2024 VITAMIN D,25-OH,TOTAL,IA 22 ng/mL Low 30-100 [facility] Comment on above: Result Comment: Mai min D Status 25-OH Vitamin D: Deficiency: <20 ng/mL Insufficiency: 20 - 29 ng/mL Optimal: > or = 30 ng/mL For 25-OH Vitamin D testing on patients on D2-supplementation and patients for whom quantitation of D2 and D3 fractions is required, the QuestAssureD(TM) 25-OH VIT D, (D2,D3), LC/MS/MS is recommended: order code [id number] (patients >2yrs). See Note 1 Note 1 For additional information, please refer to http://education.[employer]/faq/ZCA526 (This link is being provided for informational/ educational purposes only.) Performed By: #### 2 9256, 20008, 48899, 03426, 6399 #### [facility] [address] [facility], [address] [place] [phone] Regional Education Manager: Jp Carreon MD CT ABDOMEN W AND WO IV CONTR Tiffanie 10-19-2024 CT ABDOMEN W AND WO IV CONTRAST EXAM: CT Abdomen With and Without Contrast. REASON FOR EXAM: Followup pancreatic cyst. TECHNIQUE: Helically acquired axial source imaging of the abdomen provided having been performed before and then during the IV bolus of nonionic contrast material, from above the hemidiaphragms, through the iliac crests. COMPARISON: 11/26/2017 IV contrast: Isovue-300, 100 mL FINDINGS: Noncontrast CT abdomen: Negative for urolithiasis. Postcontrast CT abdomen: Lung bases: The lung bases are clear. No pleural effusion. No basilar pneumothorax. What is seen of the heart and pericardium unremarkable. Visceral analysis: Hepatic parenchymal attenuation is diffusely reduced, without evidence of space-occupying mass or intrahepatic biliary ductal dilatation. There is appropriate enhancement the main portal vein. Negative for extrahepatic biliary ductal dilatation. The adrenal glands, kidneys, and spleen are unremarkable. The pancreas is unremarkable in appearance. No pancreatic or peripancreatic cystic structure identified. Gallbladder: Present, and contains no abnormal density. Retroperitoneum: The abdominal aorta is nonaneurysmal. The IVC is unremarkable. No para-aortic or retrocrural lymphadenopathy. The central mesentery is unremarkable. Bowel: The caliber of loops of small bowel and colon unremarkable. No pericecal inflammatory phlegmon. Appendix: identified and is not inflamed.. Abdominal and pelvic wall: No regional hernia of the anterior abdominal wall identified. Osseous analysis: Postprocedural changes in the thoracolumbar spine from fusion. IMPRESSION: 1. Hepatic steatosis. 2. Negative for urolithiasis. 3. Unremarkable appearing pancreas. No persistent pancreatic cyst, pseudocyst, abscess, hemorrhage, mass, or regional adenopathy. All CT scans at this institution are performed using dose optimization techniques as appropriate for the performed exam including the following: Automated exposure control Adjustment of the mA and/or kV according to patient size Use of iterative reconstruction technique *This report is generated using voice recognition reporting ([employer]). On occasion [employer] erroneously drops words from the report or replaces the spoken word with similar sounding words. Please call with any questions/concerns regarding this report.* Dictated and transcribed 10/24/24/dpd This report has been electronically signed and approved by the interpreting radiologist. Normal Not Available US CHESTon 10-18-2024 US CHEST TITLE OF EXAM: US CHEST REASON FOR EXAM: Chest lump. TECHNIQUE: Grayscale ultrasound of the chest COMPARISONS: None. FINDINGS: At the site of the patient's reported palpable abnormality of the left lower thorax at the region of reported palpable abnormality, evaluated tissues are sonographically normal. IMPRESSION: Sonographically normal tissues. DICTATED ON: 10/18/2024 11:12 AM This report has been electronically signed and approved by the interpreting radiologist. Normal Not Available XR Foot - right 3 [facility] Result: Notable bunionectomy site with dorsal 1st metatarsal exostosis and notable right 2nd slight offset in joint between proximal phalanx and 2nd metatarsal head region [facility] observation (narrative) [facility] Office Visiton 09-19-2024 Follow-up visit [id number] Su Zhang 1975 F Date Provider Department Center 09/19/2024 [id number] SANCHES [facility] Family History Problem Relation Age of Onset Diabetes Brother Hypertension Maternal Grandmother Hyperlipidemia Maternal Grandfather Diabetes Maternal Grandfather Family Status - Relation Status Age at Brother Maternal Grandmother Maternal Grandfather Level of Service:02150 ND OFFICE/OUTPATIENT ESTABLISHED LOW MDM 20 MIN Reason for Visit and Comments: Hypertension [031985] Palpitations [402568] Normal [facility] ALL LIPID PROFILE (FASTING)o n 09-17-2024 CHOL [facility]8 [facility] Comment on above: 3.3 - 4.4 LOW RISK 4.4 - 7.1 AVERAGE RISK 7.1 - 11.0 MODERATE RISK >11.0 HIGH RISK Cholesterol [Mass/Vol] 181 mg/dL NINF - 200 mg/dL [facility] Cholesterol in HDL [Mass/Vol] 48 mg/dL 40 - 60 mg/dL [facility] Comment on above: > or =60 mg/dl - LOW CARDIOVASCULAR RISK <40 mg/dl - HIGH CARDIOVASCULAR RISK Magnesium [Mass/Vol] 109 mg/dL [facility] Comment on above: <100 mg/dl OPTIMAL 100-129 mg/dl NEAR OR ABOVE OPTIMAL 130-159 mg/dl BORDERLINE HIGH 160-189 mg/dl HIGH >190 mg/dl VERY HIGH Triglyceride [Mass/Vol] 120 mg/dL NINF - 150 mg/dL [facility] VLDL CHOLESTEROL 24 mg/dL [facility] Rupali 09-17-2024 ALT [Catalytic activity/Vol] 57 U/L 14 - 59 U/L [facility] Tiffanie 09-17-2024 AST [Catalytic activity/Vol] 36 U/L 15 - 37 U/L [facility] No Panel Informationon 09-17 [facility] Office Visiton 06-10-2024 Follow-up visit [id number] Su Zhang 1975 F Date Provider Department Center 06/10/2024 [id number] SANCHES Family History Problem Relation Age of Onset Diabetes Brother Hypertension Maternal Grandmother Hyperlipidemia Maternal Grandfather Diabetes Maternal Grandfather Family Status - Relation Status Age at Brother Maternal Grandmother Maternal Grandfather Level of Service:40356 ND OFFICE/OUTPATIENT ESTABLISHED MOD MDM 30 MIN Reason for Visit and Comments: Hypertension [040247] - Had routine labs with lipid panel in September 2023 and again in Mar. HR has been running high 80's to low 100's. Dizziness [119742] - Denies chest pain, SOB, and palpitations. Gets lightheaded at times. BP has been up and down. Normal [facility] ECHOCARDIO M/2D COMPLETEon 1 06-30-2021 ECHOCARDIO M/2D COMPLETE Patient: SU ZHANG. Exam Date: 04/30/2022 : 1975 Gender:F Ordering : ALDA CHURCH Admission #: [id number] Family : DR DIONNA BROWN M.D. Order #: [id number] CLICK HERE TO VIEW EXAM ECHOCARDIOGRAM REPORT [...] Conde M.D. on 04/30/2022 at 18:05 Normal [facility] PAP ACOG PANEL 2: 30 to 65on 04-06-2022 . . Normal [facility] Comment on above: Result Comment: Perf ormed at: BA Performed By: #### 4 [id number] #### [facility] [address] [place] [address] Dr. Rocio Stein Age Gdln ACOG Testing 30-65 Normal [facility] Comment on above: Performed By: #### 4 [id number] #### [facility] [address] [place] [address] Dr. Rocio Stein DIAGNOSIS: Comment Normal [facility] Comment on above: Result Comment: NEGA TIVE FOR INTRAEPITHELIAL LESION OR MALIGNANCY. Performed at: BA Performed By: #### 4 [id number] #### [facility] [address] [place] [address] Dr. Rocio Stein HPV Aptima Negative Normal Negative [facility] Comment on above: Result Comment: This nucleic acid amplification test detects fourteen high-risk HPV types (16,18,31,33,35,39,45,51,52,56,58,59,66,68) without differentiation. Performed at: =G Performed By: #### 4 [id number] #### [facility] [address] [place] [address] Dr. Rocio Stein Methodology: Comment Normal [facility] Comment on above: Result Comment: This liquid based ThinPrep(R) pap test was screened with the use of an image guided system. Performed at: WB Performed By: #### 4 [id number] #### [facility] [address] [place] [address] Dr. Rocio Stein Note: Comment Normal [facility] Comment on above: Result Comment: The Pap smear is a screening test designed to aid in the detection of premalignant and malignant conditions of the uterine cervix. It is not a diagnostic procedure and should not be used as the sole means of detecting cervical cancer. Both false-positive and false-negative reports do occur. . Performed at: WB Performed By: #### 4 [id number] #### [facility] [address] [place] [address] Dr. Rocio Stein Performed by: Comment Normal [facility] Comment on above: Result Comment: Kay Velarde, Engineer Assistant (ASCP) Performed at: BA Performed By: #### 4 [id number] #### [facility] [address] [place] [address] Dr. Rocio Stein Specimen adequacy: Comment Normal [facility] Comment on above: Result Comment: Sati sfactory for evaluation. Endocervical and/or squamous metaplastic cells (endocervical component) are present. Performed at: Performed By: #### 4 [id number] #### [facility] [address] [address] [address] Rocio Stein MG MAMM SCREEN 3D FREDERICK CADon 02-17-2022 MG MAMM SCREEN 3D FREDERICK CAD Patient: SU ZHANG Exam Date: 02/17/2022 : 1975 Gender:F Ordering : DR BRAULIO WALTER . Admission #: [id number] Family : Order #: [id number] CLICK HERE TO VIEW EXAM RADIOLOGY REPORT [...] Treatments None Family Cancers None LOCATION: [facility] BREAST COMPOSITION: Heterogeneously dense,which may obscure small [...] Licea MD on 02/17/2022 at 11:03 Normal [facility] Coding Summary.on 01-27-2019 Coding Summary. CODING DATE: 01/27/2019 FINAL [facility] STATUS: Home (Routine DC) PAYOR: Cecile [...] PROC APC STAT DESCRIPTION DOCTOR NAME DATE 63383 Nasal/sinus endoscopySimran MD, Hilary H 01/20/2019 surgical; with tonia bullosa resection 50 Bilateral Procedure [id number] 5155 J1 Nasal/sinus endoscopySimran MD, Hilary H 01/20/2019 surgical with ethmoidectomy; partial (anterior) LT Left side (used to identify procedures performed on the left side of the body) 43777 Nasal/sinus endoscopySimran MD, Hilary H 01/20/2019 surgical, with maxillary antrostomy; 50 Bilateral Procedure 40445 Anesthesia for Jairo Schmitt Jr., DO 01/20/2019 procedures on nose and accessory sinuses; not otherwise specified NOTE: The code number assigned matches the documented diagnosis and / or procedure in the patient's chart. However, the narrative phrase printed from the coding software may appear abbreviated, or result in slightly different terminology. Revised Coded By: Ivania Gray Revised Date Saved: 01/27/2019 02:02 pm Normal [facility] Operative Reporton 9 Operative Report Date of Surgery: 01/20/2019 SURGEON: Annelise Khalil Jr., M.D. 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 INDICATIONS: This 43-year-old presented with chronic [...] the maxillary sinus was identified with a Irwin seeker and then opened posteriorly with a [...] in good condition. Annelise Khalil Jr., M.D. s Dictated: 01/27/2019 #[id number] Typed: 01/27/2019 #[id number] cc: MD Annelise Ferraro Jr., M.D. [facility] Comment on above: Result Comment: Elec tronically Signed By: Annelise Khalil MD\.br\Date and Time Signed: 01/27/19 11:46 EDT Main OR Intraoperative Recor don 01-21-2019 Main OR Intraoperative Record IntraOp Document Type FT Summary Primary Physician: Annelise Khalil MD Finalized Date/Time: 01/21/19 12:25:07 Pt. Name: SU ZHANG/Sex: 1975 Female Med Rec #: [id number] Physician: Annelise Khalil MD Financial #: [id number] Pt. Type: A Room/Bed: [facility] Admit/Disch: 01/20/19 08:56:00 - 01/20/19 13:15:00 Institution: Case Times FT Entry 1 Patient Times In Room 01/20/19 10:17:00 Out Room 01/20/19 11:01:00 Procedure Times Start 01/20/19 10:31:00 Stop 01/20/19 10:53:00 Anesthesia Times Start 01/20/19 10:17:00 Stop 01/20/19 11:01:00 Last Modified By: Deepti Auguste CST 01/20/19 11:01:25 General Comments: 01/21/19 Chart opened to review and send charges J Molina NASSAR Case Attendance FT Entry 1 Entry 2 Entry 3 Case Attendee Keshia Galan DO, Jairo Khalil MD, Annelise Vivas RN, Ross Kyle Role Performed Anesthesiologist of Surgeon - Primary Managed Care Manager - Primary Record Time In 01/20/19 10:17:00 01/20/19 10:17:00 01/20/19 10:17:00 Time Out 01/20/19 11:01:00 01/20/19 11:01:00 01/20/19 11:01:00 Procedure ANTROSTOMY TURBINECTOMY ANTROSTOMY TURBINECTOMY ANTROSTOMY TURBINECTOMY ETHMOIDECTOMY IM(.) ETHMOIDECTOMY IM(.) ETHMOIDECTOMY IM(.) Comments Last Modified By: Sangeetha RN, Ross Vivas RN, Ross Vivas RN, Ross Kyle 01/20/19 11:01:27 01/20/19 11:01:27 01/20/19 11:01:27 Entry 4 Entry 5 Case Attendee Sage LESTER, Tawnya Cabello CST Role Performed Managed Care Manager - Primary Scrub - Primary Time In 01/20/19 10:17:00 01/20/19 10:17:00 Time Out 01/20/19 11:01:00 01/20/19 11:01:00 Procedure ANTROSTOMY TURBINECTOMY ANTROSTOMY TURBINECTOMY ETHMOIDECTOMY IM(.) ETHMOIDECTOMY IM(.) Comments Last Modified By: Sangeetha LESTER, Ross Vivas RNRoss 01/20/19 11:01:27 01/20/19 11:01:27 Perioperative Protocols FT [...] Out Keshia Galan DO, Jairo, Given Participants Annelise Khalil MD, Sangeetha LESTER, Sage Saha RN, Jenna Vizcarra CST, Macie C Time Out Complete 01/20/19 10:30:00 Outcomes Met? [...] and tissue Entry 1 Skin Integrity Intact, [place], Warm, and Outcomes Met? Yes Dry Last [...] Points Checked Yes By Ross Vivas RN, Jairo Schmitt Jr., DO, Farris RN, Karen M Outcomes Met? Yes Last Modified By: Ross [...] By: Ross Vivas RN, RN, Kail M Tinker RN, Kail M 01/20/19 09:40:24 01/20/19 09:40:24 01/20/19 09:40:24 Entry 4 Entry 5 Entry 6 Equipment Type MISTRAL FORCED AIR MONITOR CHARGE SURGERY VIDEO SYSTEM[F] WARMING SYSTEM UNIT[F] [F] Equipment Number m2 Equipment Setting 43 Outcomes Met? Yes Yes Yes Last Modified By: Ross Vivas RN, RN, Kail M Tinker RN, Kail M 01/20/19 09:40:24 01/20/19 09:40:24 01/20/19 09:40:24 Post-Care [...] Sponges, Sharps Status Correct Correct Time By Tawnya West CST, Ott CST, Macie C, Tinker RN, Linda Sal RN Outcomes Met? [...] RN Patient Status Stable Skin. Condition Intact, [place], Warm, and Dry Airway Maintenance Oxygen in Use? Yes Airway Device Simple Mask Flow Rate 8 L Outcomes Met? Yes Last Modified By: Ross Vivas RN 01/20/19 10:32:03 Post-Care Text: The patient is free from signs and symptoms of injury related to transfer/transport General Comments: report to pacu nurse/ megan lesterbroomcorn scraper Administration FT Pre-Care Text: Verifies allergies, administers prescribed medications and solutions, administers prescribed antibiotic therapy and immunizing agents as ordered, evaluates response to medications Administers prescribed medications and solutions Entry 1 Expiration Date Yes Outcomes Met? Yes Verified Last Modified By: Ross Vivas RN 01/20/19 10:20:34 Post-Care Text: The patient received appropriate medication(s) safely administered during the perioperative period For [facility] please see scanned medication reconcilliation form for [...] AIR Quantity 1 Aid PLUS LOWER BODY [[id number]][F] Fluid/[place] [facility] Mistral warming system Setting 43 Body Site Lower anterior torso Last Modified By: Ross Vivas RN 01/20/19 09:41:59 Case Comments Finalized By: Deepti Auguste CST Document Signatures Signed By: Ross Vivas RN 01/20/19 11:01 Deepti Auguste CST 01/21/19 12:25 Normal [facility] B hCG Qualon 01-20-2019 Beta hCG Ql Negative Normal [facility] Comment on above: Performed By: #### 2 [id number] ####[facility] [address] [place] [address] Inpatient Patient Summaryon 01-20-2019 Inpatient Patient Summary [facility] Clinical Discharge Instructions PERSON INFORMATION Name: SU ZHANG PHYSICIANS Admitting Physician: Annelise Khalil MD Attending Physician: Annelise Khalil MD PCP: DIONNA BRONW MD Discharge Diagnosis: Chronic ethmoidal sinusitis; Chronic maxillary sinusitis; Tonia bullosa Comment: PATIENT EDUCATION INFORMATION Instructions: Medication Leaflets: Follow up: With: Address: When: Annelise Khalil [address] [place] [address] 3, [address] [place] [phone] Business (1) In 8 days 01/28/2019 MEDICATION LIST Comment: [facility] Main OR PACU I Recordon Main OR PACU I Record PACU Phase I Document Type FT Summary Primary Physician: Annelise Khalil MD Finalized Date/Time: 01/20/19 11:49:49 Pt. Name: SU ZHANG Annabelle /Sex: 1975 Female Med Rec #: [id number] Physician: Annelise Khalil MD Financial #: [id number] Pt. Type: A Room/Bed: [facility] Admit/Disch: 01/20/19 08:56:33 - Institution: Case Times [...] By: Rosa Chu RN 01/20/19 11:49 Normal [facility] Main OR PACU II Recordon Main OR PACU II Record PACU Phase II Document Type FT Summary Primary Physician: Annelise Khalil MD Finalized Date/Time: 01/20/19 13:19:04 Pt. Name: SU ZHANG/Sex: 1975 Female Med Rec #: [id number] Physician: Annelise Khalil MD Financial #: [id number] Pt. Type: A Room/Bed: [facility] Admit/Disch: 01/20/19 08:56:33 - Institution: Case [...] By: Scarlett Bermudez RN 01/20/19 13:19 Normal [facility] Main OR Preoperative Recordo n 01-20-2019 Main OR Preoperative Record PreOp Document Type FT Summary Primary Physician: Annelise Khalil MD Finalized Date/Time: 01/20/19 10:32:39 Pt. Name: SU ZHANG/Sex: 1975 Female Med Rec #: [id number] Physician: Annelise Khalil MD Financial #: [id number] Pt. Type: A Room/Bed: Admit/Disch: 01/20/19 08:56:33 - Institution: Case Times [...] By: Ross Vivas RN 01/20/19 10:32 Normal [facility] Operative Reporton Operative Report Patient: SU ZHANG Age: 43 years Sex: Female : 1975 Associated Diagnoses: None Author: Annelise Khalil MD Postoperative Information Procedure: Frederick MMA and r/o conchae, left ant etmoidectomy Preoperative Diagnosis: Chronic maxillary sinusitis (ZGK37-UV J32.0, Working, Medical), Tonia bullosa (SRU52-JZ J34.89, Working, Medical), Chronic ethmoidal sinusitis (KKA61-UJ J32.2, Working, Medical). Postoperative Diagnosis: Chronic maxillary sinusitis (SIW91-AR J32.0, Discharge, Medical), Tonia bullosa (EDV51-EZ J34.89, Discharge, Medical), Chronic ethmoidal sinusitis (BJN85-DL J32.2, Discharge, Medical). Performed by: Annelise Khalil MD. Findings: frederick conchae, grossly normal sinus anatomy. Specimens Removed: l7r sinus contents. Estimated Blood Loss: 10 ml. Medications Complications: None. Normal [facility] Comment on above: Result Comment: Elec tronically Signed By: Annelise Khalil MD\.br\Date and Time Signed: 01/20/19 11:09 EDT Patient Education - Texton 0 01-20-2019 Patient Education - Text [facility] Coding Summary.on 01-07-2019 Coding Summary. CODING DATE: 01/07/2019 FINAL [facility] STATUS: Home (Routine DC) PAYOR: Cecile [...] CphT Date Saved: 01/07/2019 12:06 pm Normal [facility] Auto Diffon 01-04-2019 Basophils/100 WBC (Bld) 0.7 % Normal 0.0-2.0 [facility] Comment on above: Order Comment: Order Added by Discern Expert. Performed By: #### 2 398781, [id number], [id number] #### [facility] [address] [place] [address] Basophils/Leukocyte s Auto (Bld) [Pure # fraction] 0.0 E9/L Normal 0.0-0.2 [facility] Comment on above: Order Comment: Order Added by Discern Expert. Performed By: #### 2 523606, 1017515, [id number] #### [facility] [address] [place] [address] Eosinophils/100 WBC (Bld) 7.3 % Normal 0.0-8.0 [facility] Comment on above: Order Comment: Order Added by Discern Expert. Performed By: #### 2 278909, [id number], [id number] #### [facility] [address] [place] [address] Eosinophils/Leukocy antoine Auto (Bld) [Pure # fraction] 0.5 E9/L Normal 0.0-0.5 [facility] Comment on above: Order Comment: Order Added by Discern Expert. Performed By: #### 2 163179, [id number], [id number] #### [facility] [address] [place] [address] Lymphocytes/100 WBC (Bld) 23.6 % Normal 14.0-50.0 [facility] Comment on above: Order Comment: Order Added by Discern Expert. Performed By: #### 2 949603, [id number], [id number] #### [facility] [address] [place] [address] Lymphocytes/Leukocy antoine Auto (Bld) [Pure # fraction] 1.8 E9/L Normal 1.0-4.0 [facility] Comment on above: Order Comment: Order Added by Discern Expert. Performed By: #### 2 052018, [id number], [id number] #### [facility] [address] [place] [address] Monocytes/100 WBC (Bld) 6.4 % Normal 4.0-14.0 [facility] Comment on above: Order Comment: Order Added by Discern Expert. Performed By: #### 2 951030, 6996229, [id number] #### [facility] [address] [place] [address] Monocytes/Leukocyte s Auto (Bld) [Pure # fraction] 0.5 E9/L Normal 0.2-1.0 [facility] Comment on above: Order Comment: Order Added by Discern Expert. Performed By: #### 2 977035, 5412780, [id number] #### [facility] [address] [place] [address] Neutrophils/100 WBC (Bld) 62.0 % Normal 36.0-75.0 [facility] Comment on above: Order Comment: Order Added by Discern Expert. Performed By: #### 2 907809, 2726121, [id number] #### [facility] [address] [place] [address] Neutrophils/Leukocy antoine Auto (Bld) [Pure # fraction] 4.6 E9/L Normal 2.0-7.5 [facility] Comment on above: Order Comment: Order Added by Discern Expert. Performed By: #### 2 974581, 1303046, [id number] #### [facility] [address] [place] [address] BUNon 01-04-2019 Urea nitrogen [Mass/Vol] 10 mg/dL Normal 5-21 [facility] Comment on above: Performed By: #### 2 111595, 2434579, [id number], [id number] #### [facility] [address] [place] [address] CBC w/ Auto Diffon 9 Erythrocyte distribution width (RBC) [Ratio] 12.9 % Normal 10.9-14.2 [facility] Comment on above: Performed By: #### 2 231404, 8381293, [id number] #### [facility] [address] [place] [address] Hematocrit (Bld) [Volume fraction] 41.7 % Normal 34.0-46.0 [facility] Comment on above: Performed By: #### 2 711148, 3264248, [id number] #### [facility] [address] [place] [address] Hemoglobin (Bld) [Mass/Vol] 14.1 g/dL Normal 12.0-16.0 [facility] Comment on above: Performed By: #### 2 487505, 8290841, [id number] #### [facility] [address] [place] [address] MCH (RBC) [Entitic mass] 31.6 pg Normal 27.0-34.0 [facility] Comment on above: Performed By: #### 2 463024, 0375629, [id number] #### [facility] [address] [place] [address] MCHC (RBC) [Mass/Vol] 33.9 g/dL Normal 33.3-35.7 [facility] Comment on above: Performed By: #### 2 450522, 3379377, 31905803 #### [facility] [address] [place] [address] MCV (RBC) [Entitic vol] 93.2 fL Normal 80.0-100.0 [facility] Comment on above: Performed By: #### 2 931649, 9469841, [id number] #### [facility] [address] [place] [address] Platelet mean volume (Bld) [Entitic vol] 7.3 fL Normal 6.4-10.8 [facility] Comment on above: Performed By: #### 2 696019, 2670831, [id number] #### [facility] [address] [place] [address] Platelets (Bld) [#/Vol] 361.0 E9/L Normal 150.0-500.0 [facility] Comment on above: Performed By: #### 2 515234, 3810633, [id number] #### [facility] [address] [place] [address] RBC (Bld) [#/Vol] 4.5 E12/L Normal 4.3-5.9 [facility] Comment on above: Performed By: #### 2 281173, 6466992, 20736930 #### [facility] [address] [place] [address] WBC corrected for nucl RBC Auto (Bld) [#/Vol] 7.4 E9/L Normal 4.0-11.0 [facility] Comment on above: Performed By: #### 2 614380, 1245102, 88216309 #### [facility] [address] [place] [address] Creatinineon 01-04-2019 Creatinine [Mass/Vol] 0.6 mg/dL Normal 0.5-1.3 [facility] Comment on above: Performed By: #### 2 785990, 1246406, 74380719, 4683338 #### [facility] [address] [place] [address] Lyteson 01-04-2019 Anion gap [Moles/Vol] 17 mmol/L High 12-05 [facility] Comment on above: Performed By: #### 2 429521, 7579873, 81547396, 0539205 #### [facility] [address] [place] [address] Chloride [Moles/Vol] 105 mmol/L Normal 101-111 [facility] Comment on above: Performed By: #### 2 876211, 7387683, 46862545, 5547818 #### [facility] [address] [place] [address] CO2 [Moles/Vol] 21 mmol/L Normal 21-31 [facility] Comment on above: Performed By: #### 2 995598, 9855779, 17558020, 5805891 #### [facility] [address] [place] [address] Potassium [Moles/Vol] 3.6 mmol/L Normal 3.5-5.3 [facility] Comment on above: Performed By: #### 2 213390, 1935264, 04317924, 4728369 #### [facility] [address] [place] [address] Sodium [Moles/Vol] 139 mmol/L Normal 135-145 [facility] Comment on above: Performed By: #### 2 680851, 3602938, 12723807, 2594634 #### [facility] [address] [place] [address] PT & PTTon 01-04-2019 aPTT Coag (PPP) [Time] 27.9 second(s) Normal 25.1-36.5 [facility] Comment on above: Result Comment: Hepa rin therapeutic range (represented by Anti-Factor Xa activity of 0.2 - 0.4 U/mL) corresponds to PTT of 56.6 - 109.0 sec. Performed By: #### 2 502210, 5010253, 19140999 #### [facility] [address] [place] [address] INR Coag (PPP) [Relative time] 1.0 {INR} [facility] Comment on above: Result Comment: INR results are specifically intended to assess patients stabilized on long-term Anticoagulation therapy suggested INR?s ?Less Intensive Anticoagulation? 2.0 ? 3.0 Conventional Range 3.0 ? 4.5 Performed By: #### 2 140829, 7494241, 31945228 #### [facility] [address] [place] [address] PT Coag (PPP) [Time] 10.6 second(s) Normal 10.2-12.9 [facility] Comment on above: Performed By: #### 2 [id number] #### [facility] [address] [place] [address] XR Chest 2 Viewson 9 XR Chest [...] M.D. Transcribed by: JEANA Technologist: ANNAMARIE Fitch [facility] eGFRon 01-04-2019 GFR/1.73 sq M predicted among blacks MDRD (S/P/Bld) [Vol rate/Area] mL/min/{1.73_m2} Normal >=59 [facility] Comment on above: Order Comment: Order added by Discern Expert. Result Comment: eGFR is race adjusted. AA=. Performed By: #### 2 [id number] #### [facility] [address] [place] [address] GFR/1.73 sq M predicted among non-blacks MDRD (S/P/Bld) [Vol rate/Area] mL/min/{1.73_m2} Normal >=59 [facility] Comment on above: Order Comment: Order added by Discern Expert. Result Comment: Wire Weaving Loom Setter justus kidney disease could be indicated at eGFR's of less than 60 mL/min/1.73m2. Kidney failure is indicated at less than 15 mL/min/1.73m2. Performed By: #### 2 [id number] #### [facility] [address] [place] [address] Coding Summary.on 11-17-2018 Coding Summary. CODING DATE: 11/17/2018 FINAL [facility] STATUS: Home (Routine DC) PAYOR: Cecile [...] CphT Date Saved: 11/17/2018 12:08 pm Normal [facility] CT Maxillofacial w/o Contras ton 11-16-2018 [...] (Electronic Signature): 11/16/2018 3:19 pm Signed by: Coutrney Morataya MD Transcribed by: JEANA Technologist: EMILEE [facility] Vital Signs Date Time Vital Sign Value Performing Clinician [place] 11-03-2024 13:05-0400 Body height 170.2 cm Renny Albert DPM Work Phone: [facility] 11-03-2024 13:05-0400 Body mass index (BMI) [Ratio] 30.54 kg/m2 Renny Brown DPM Work Phone: [facility] 11-03-2024 13:05-0400 Body weight 88.45 kg Renny Brown DPM Work Phone: [facility] 11-03-2024 13:05-0400 Respiratory rate 18 /min Renny Brown DPM Work Phone: [facility] 10-13-2024 14:48-0400 Body height 170.2 cm Renny Brown DPM Work Phone: [facility] 10-13-2024 14:48-0400 Body mass index (BMI) [Ratio] 30.54 kg/m2 Renny Brown DPM Work Phone: [facility] 10-13-2024 14:48-0400 Body weight 88.45 kg Renny Brown DPM Work Phone: [facility] 10-13-2024 14:48-0400 Respiratory rate 18 /min Renny Brown DPM Work Phone: [facility] 10-04-2024 13:11-0400 Body height 170.2 cm Linda Hemmer PA Work Phone: [facility] 10-04-2024 13:11-0400 Body mass index (BMI) [Ratio] 30.48 kg/m2 Linda Hemmer PA Work Phone: [facility] 10-04-2024 13:11-0400 Body weight 88.27 kg Linda Hemmer PA Work Phone: [facility] 10-04-2024 13:11-0400 Diastolic blood pressure 78 mm[Hg] Linda Hemmer PA Work Phone: [facility] 10-04-2024 13:11-0400 Heart rate 82 /min Linda Hemmer PA Work Phone: [facility] 10-04-2024 13:11-0400 Respiratory rate 16 /min Linda Hemmer PA Work Phone: [facility] 10-04-2024 13:11-0400 SaO2% (BldA) [Mass fraction] 96 % Linda Hemmer PA Work Phone: [facility] 10-04-2024 13:11-0400 Systolic blood pressure 132 mm[Hg] Linda Hemmer PA Work Phone: [facility] Healthcare Encounters Encounter Date Encounter Type Care Provider Facility Start: 11-04-2024 End: 11-04-2024 ambulatory Imad Asaad Facility:[facility] Start: 11-03-2024 End: 11-03-2024 Bamboo flowsheet Renny Albert DPM Work Phone: [facility] Start: 11-03-2024 End: 11-03-2024 Bamboo flowskiersten Albert DPM Work Phone: [facility] Start: 11-03-2024 End: 11-03-2024 Office outpatient visit 15 minutes Renny Albert DPM Work Phone: [facility] Comment on above: Capsulitis of metata rsophalangeal (MTP) joint of right foot (Primary Dx); Metatarsal deformity, right Start: 11-03-2024 End: 11-03-2024 ambulatory RENNY ALBERT Not Available Start: 10-20-2024 End: 10-20-2024 ambulatory LINDA CHOUDHURY Not Available Start: 10-18-2024 End: 10-18-2024 ambulatory LINDA CHOUDHURY Not Available Start: 10-13-2024 End: 10-13-2024 ambulatory RENNY ALBERT Not Available Start: 10-13-2024 End: 10-13-2024 Office outpatient new 30 minutes Renny Albert DPM Work Phone: [facility] Comment on above: Capsulitis of metata rsophalangeal (MTP) joint of right foot (Primary Dx); Metatarsal deformity, right Start: 10-13-2024 End: 10-13-2024 Bamboo flowsheet Renny Albert DPM Work Phone: [facility] Start: 10-13-2024 End: 10-13-2024 Bamboo flowsheet Renny Albert DPM Work Phone: [facility] Start: 10-04-2024 End: 10-04-2024 Bamboo flowsheet Linda Choudhury PA Work Phone: [facility] Start: 10-04-2024 End: 10-04-2024 Bamboo flowsheet Linda Choudhury PA Work Phone: [facility] Start: 10-04-2024 End: 10-04-2024 Patient encounter status Linda Choudhury PA Work Phone: [facility] Start: 10-04-2024 End: 10-04-2024 Periodic preventive med est patient 40-64yrs Linda GARNETT Work Phone: [facility] Comment on above: Wellness examination (Primary Dx); Essential hypertension (CMS/HCC); Palpitations; Tachycardia; Tension headache; Esophageal stricture; Pancreatic cyst (CMS/HCC); Gastroesophageal reflux disease with esophagitis without hemorrhage; Idiopathic scoliosis and kyphoscoliosis; Class 1 obesity due to excess calories without serious comorbidity with body mass index (BMI) of 30.0 to 30.9 in adult; Thyroid enlargement (CMS/HCC); Vitamin D deficiency; Chronic pansinusitis; Abnormal mammogram; Anxiety; Mixed hyperlipidemia (CMS/HCC); Seasonal allergic rhinitis due to pollen; Situational anxiety; Neoplasm of uncertain behavior of skin; Family history of cancer; Screen for colon cancer; Weight gain; Local superficial swelling, mass or lump Start: 10-04-2024 End: 10-04-2024 ambulatory LINDA CHOUDHURY Not Available Start: 09-19-2024 End: 09-19-[address] [facility] Start: 09-17-2024 End: 09-17-2024 Clinisync Result Encounter Generic External Data Provider [facility] Unsolicited Start: 09-17-2024 End: 09-17-2024 Clinisync Result Encounter Generic External Data Provider [facility] Unsolicited Start: 06-10-2024 End: 06-10-[address] [facility] Start: 04-30-2022 End: 05-01-2022 ambulatory ALDA CHURCH Facility:[facility] Start: 04-01-2022 End: 04-01-[address] BRAULIO WALTER Facility:[facility] Start: 02-17-2022 End: 02-18-[address] BRAULIO WALTER Facility: Start: 11-03-2017 End: 11-04-2017 Ambulatory DEFAULT PHYSICIAN Facility:[facility] Start: 10-30-2017 End: 10-31-2017 Ambulatory DEFAULT PHYSICIAN Facility:[facility] Procedures Date Procedure Procedure Detail Performing Clinician Start: 10-13-2024 Radex foot complete minimum 3 views Renny Albert DPM Work Phone: Start: 09-17-2024 ALL LIPID PROFILE (FASTING) Generic External Data Provider Start: 09-17-2024 [facility] ALT Generic Ex ternal Data Provider Start: 09-17-2024 [facility] AST Generic Ex ternal Data Provider Start: 02-26-2024 Mammography Generic Pr ovider Start: 01-24-2019 Anesthesia consultation Start: 01-20-2019 Anesthesia consultation Plan of Treatment Date Care Activity Detail Author Start: 02-14-2028 Screening for malignant neoplasm of cervix [facility] Healthcare Start: 10-13-2026 Screening for malignant neoplasm of colon [facility] Start: 02-25-2025 Screening for malignant neoplasm of breast Mammogram [facility] Start: 02-20-2025 Influenza vaccination Influenza Vaccine (Season Ended) [facility] Start: 11-03-2024 End: 11-03-2024 Patient encounter procedure 11/03/2024 1:10 PM EDT Office Visit [facility] [address] [id number] Renny Albert, JEANAM [address] [address] Capsulitis of metatarsophalangeal (MTP) joint of right foot (Primary Dx); Metatarsal deformity, right [facility] Comment on above: Capsulitis of metatarsophalangeal (MTP) joint of right foot (Primary Dx); Metatarsal deformity, right Start: 10-19-2024 End: 10-19-2024 Professional / ancillary services management 10/19/2024 11:15 AM EDT Ancillary Procedure [facility] [address] [facility] [address] [place] [address] [facility] [address] Start: 10-18-2024 End: 10-18-2024 Professional / ancillary services management 10/18/2024 11:45 AM EDT Ancillary Procedure [facility] [address] [facility] [address] [place] [address] [facility] Start: 10-13-2024 End: 10-13-2024 Patient encounter procedure 10/13/2024 2:40 PM EDT Office Visit [facility] [address] [facility] [address] [place] [id number] Renny Albret, DPM [address] [address] [facility] Start: 10-05-2024 End: 10-05-2025 CT Abdomen W contrast IV CT abdomen w IV contrast Imaging Routine Pancreatic cyst (CMS/HCC) Expected: 10/05/2024, Expires: 10/05/2025 [facility] Comment on above: Expected: 10/05/2024, Expires: Start: 10-05-2024 End: 10-05-2025 Estradiol Estradiol Lab Routine Wellness examination Palpitations Weight gain Expected: 10/05/2024 (Approximate), Expires: 10/05/2025 [facility] Comment on above: Expected: 10/05/2024 (Approximate), Expi res: 10/05/2025 Start: 10-05-2024 End: 10-05-2025 [facility] Lab Routine Wellness examination Palpitations Weight gain Expected: 10/05/2024 (Approximate), Expires: 10/05/2025 [facility] Comment on above: Expected: 10/05/2024 (Approximate), Expi res: 10/05/2025 Start: 10-05-2024 End: 10-05-2025 US Chest US chest Imaging Routine Local superficial swelling, mass or lump Expected: 10/05/2024, Expires: 10/05/2025 [facility] Comment on above: Expected: 10/05/2024, Expires: Start: 10-04-2024 End: 10-04-2025 CA 125 CA 125 Lab Routine Wellness examination Family history of cancer Expected: 10/04/2024 (Approximate), Expires: 10/04/2025 [facility] Comment on above: Expected: 10/04/2024 (Approximate), Expi res: 10/04/2025 Start: 10-04-2024 End: 10-04-2025 Carcinoembryonic Ag [Mass/volume] in Serum or Plasma [facility]A Lab Routine Wellness examination Family history of cancer Expected: 10/04/2024 (Approximate), Expires: 10/04/2025 [facility] Comment on above: Expected: 10/04/2024 (Approximate), Expi res: 10/04/2025 Start: 10-04-2024 End: 10-04-2024 Patient encounter procedure [facility] Comment on above: Arrived Start: 02-21-2024 Influenza vaccination Influenza Vaccine (#1) [facility] Start: 1998 Screening for malignant neoplasm of cervix Pap Smear [facility] Start: 1975 Screening for malignant neoplasm of colon [facility] 25-hydroxyvitamin D3 [Mass/volume] in Serum or Plasma Vitamin D 25 hydroxy Total Lab Routine Wellness examination Vitamin D deficiency Ordered: 10/04/2024 [facility] Work Phone: Comment on above: Ordered: 10/04/2024 Basic metabolic 1998 panel - Serum or Plasma Basic metabolic panel Lab Routine Wellness examination Essential hypertension (CMS/HCC) Mixed hyperlipidemia (CMS/HCC) Ordered: 10/04/2024 [facility] Comment on above: Ordered: 10/04/2024 CBC W Auto Different ial panel - Blood CBC and differential Lab Routine Wellness examination Essential hypertension (CMS/HCC) Mixed hyperlipidemia (CMS/HCC) Ordered: 10/04/2024 [facility] Comment on above: Ordered: 10/04/2024 TSH W/REFLEX TO FT4 TSH W/REFLEX TO FT4 Lab Routine Wellness examination Thyroid enlargement (CMS/HCC) Ordered: 10/04/2024 [facility] Comment on above: Ordered: 10/04/2024 Immunizations Immunization Date Immunization Notes Care Provider Joann valdes 05-07-2015 tetanus toxoid, redu shweta diphtheria toxoid, and acellular pertussis vaccine, adsorbed Generic Provider [facility] Payers Date Payer Category Payer Self-pay 2023 [facility] [id number] 2023 Unknown [id number] 2022 Unknown [id number] 1975 Unknown [id number] 1977 Unknown [id number] .[id number] 1977 Unknown [id number] .[id number] 1977 Unknown [id number] [id number] .2.9 1977 Unknown [id number] .2.9 1977 Unknown [id number] [id number] .[id number] 1977 Unknown [id number] [id number] .2.9 1977 Unknown [id number] .2.9 1977 Unknown [id number] .[id number] 1957 Private Health Insurance [id number] Unknown Unknown [id number] .[id number] Social History Date Type Detail Facility Start: 09-14-2023 Tobacco smoking stat [facility] Never smoked tobacco [facility] Work Phone: Start: 09-14-2023 Tobacco use and exposure Smokeless tobacco non-user [facility] Start: 09-30-2023 End: 11-03-2024 Alcoholic beverage intake Current drinker of alcohol (finding) [facility] Start: 09-30-2023 End: 10-13-2024 History of Social function [facility] Start: 09-30-2023 End: 10-13-2024 Tobacco use panel [facility] Start: 01-23-2023 Alcohol Comment 1-2 drinks 2-4 x a month in the past year, Caffeine intake: 1-2 cups per day tea [facility] Start: 1975 Sex assigned at Not on file [facility] History of Present illness Narrative 11-03-2024 Renny Albert, DPM - 11/03/2024 1:00 PM EDT Note Date & Type Note Facility 11-03-2024 History of Presen t illness Narrative Patient: Su Zhang : 1975 PCP: Dionna Brown MD SUBJECTIVE Pt presents today for follow up of capsulitis and synovitis to the right 2nd MPJ Currently they rate their pain on a 1-10 scale a 3 States prior treatments of medrol pack and nsaids with relief. Declined prior steroid injection States pain is aggrevated with WB. Pt awaits orthotic coverage and are not covered. Allergies: Allergies Allergen Reactions Other Other Reaction(s): diff breathing Past Medical History: Past Medical History: Diagnosis Date Abnormal mammogram 02/01/2018 Gastric ulcer 2012 GERD (gastroesophageal reflux disease) History of CT scan 11/28/[address] scan of Chest negative History of CT scan 06/2018 CT scan Sinuses Pansinusitis History of medical problems 03/26/2019 Endometrium is 9mm in thickness History of medical problems 04/30/2022 Normal Ventricular size and function. LVEF at 65-70%. No significant valvular dysfunction. Trivial pericardial effusion Hypertension (CMS/HCC) Personal history of other medical treatment 11/03/2017 Echo shows EF 65-70% No RWMA, Normal Right Ventricular pressures Personal history of other medical treatment 11/26/[address] scan of Abdomen negative except for cyst or dense lass at the tail of pancreas PVC (premature ventricular contraction) Sinusitis Medications: Current Outpatient Medications: omeprazole (PriLOSEC) [address] capsule, TAKE 1 CAPSULE BY MOUTH EVERY DAY, Disp: 100 capsule, Rfl: 3 cetirizine (ZyrTEC) 10 MG tablet, Take 1 tablet by mouth Daily as needed, Disp: , Rfl: dilTIAZem CD (Cardizem CD) 120 MG 24 hr capsule, TAKE 1 CAPSULE (120 MG) BY MOUTH IN THE MORNING, Disp: , Rfl: fluticasone (Flonase) 50 MCG/ACT nasal spray, INSTILL 2 SPRAY INTO EACH NOSTRIL ONCE DAILY for 30, Disp: , Rfl: methylPREDNISolone (Medrol Dospak) 4 MG tablets, Follow schedule on MEDROL PACK package instructions to be used as directed, Disp: 21 tablet, Rfl: 0 metoprolol succinate XL (Toprol-XL) 100 MG 24 hr tablet, Take 100 mg by mouth Daily Do not crush or chew., Disp: , Rfl: Multiple Vitamins-Minerals (HAIR SKIN & NAILS PO), Take 1 tablet by mouth 1 (one) time each day, Disp: , Rfl: Social History: Social History Socioeconomic History Marital status: Spouse name: Not on file Number of children: Not on file Years of education: Not on file Highest education level: Not on file Occupational History Not on file Tobacco Use Smoking status: Never Smokeless tobacco: Never Vaping Use Vaping status: Never Used Substance and Sexual Activity Alcohol use: Yes Comment: 1-2 drinks 2-4 x a month in the past year, Caffeine intake: 1-2 cups per day tea Drug use: Not on file Sexual activity: Not on file Other Topics Concern Not on file Social History Narrative Not on file Social Drivers of Health Financial Resource Strain: Not on file Food Insecurity: Not on file Transportation Needs: Not on file Physical Activity: Not on file Stress: Not on file Social Connections: Not on file Intimate Partner Violence: Unknown (08/13/2023) Received from [facility] [place] Safety & Environment Fear of Current or Ex-Partner: Not on file Emotionally Abused: Not on file Physically Abused: Not on file Sexually Abused: Not on file Physically or Sexually Abused: Not on file Housing Stability: Not on file ROS: General: denies fever, chills, fatigue, malaise Gastrointestinal: denies abdominal pain, ulcers, or changes in appetite or bowel habits Musculoskeletal: denies arthritis, denies loss of strength, pain to hip, knees, back Cardiovascular: denies CP, palpitations, positive history of PVCs OBJECTIVE LE EXAM: DERM: Positive hair growth to b/l feet with good skin turgor noted. Negative openings in skin. Scar to the right 1st MPJ and area of prior bunionectomy site VASC: Palpable pedal pulsed b/l with warm to cool tibia to toes b/l NEURO: Gross sensation intact digits 1-10 and b/l feet ORTHO: +5/5 DF/PF/IN/EV right, +5/5 DF/PF/IN/EV left. 20 degrees inversion and 10 degrees eversion STJ b/l. Ankle ROM less than 10 degrees b/l. minimal pain on palpation to right 2nd MPJ capsule with negative Anton test Plantar flexed right 2nd metatarsal US: ASSESSMENT 1. Capsulitis of metatarsophalangeal (MTP) joint of right foot 2. Metatarsal deformity, right PLAN Pt to take nsaids as needed PRN pain Discussed possible orthotics in the future steroid injection patient like declined treatment at this time as orthotics are not covered but discuss [id number] cost with metatarsal pads Renny Albert DPM documented in this encounter [facility] History of Present illness Narrative 10-13-2024 Renny Albert DPM - 10/13/2024 2:40 PM EDT Note Date & Type Note Facility 10-13-2024 History of Presen t illness Narrative Patient: Su Zhang : 1975 PCP: Dionna Brown MD SUBJECTIVE This is a 48 y.o. female that presents today for a chief complaint of pain to the right foot near the 2nd toe. She has had a steroid injection 1 year ago with negative improvement states pain up to 10 and has had prior bunionectomy 13 years ago and denies any treatment currently. Allergies: Allergies Allergen Reactions Other Other Reaction(s): diff breathing Past Medical History: Past Medical History: Diagnosis Date Abnormal mammogram 02/01/2018 Gastric ulcer 2012 GERD (gastroesophageal reflux disease) History of CT scan 11/28/[address] scan of Chest negative History of CT scan 06/2018 CT scan Sinuses Pansinusitis History of medical problems 03/26/2019 Endometrium is 9mm in thickness History of medical problems 04/30/2022 Normal Ventricular size and function. LVEF at 65-70%. No significant valvular dysfunction. Trivial pericardial effusion Hypertension (CMS/HCC) Personal history of other medical treatment 11/03/2017 Echo shows EF 65-70% No RWMA, Normal Right Ventricular pressures Personal history of other medical treatment 11/26/[address] scan of Abdomen negative except for cyst or dense lass at the tail of pancreas PVC (premature ventricular contraction) Sinusitis Medications: Current Outpatient Medications: cetirizine (ZyrTEC) 10 MG tablet, Take 1 tablet by mouth Daily as needed, Disp: , Rfl: dilTIAZem CD (Cardizem CD) 120 MG 24 hr capsule, TAKE 1 CAPSULE (120 MG) BY MOUTH IN THE MORNING, Disp: , Rfl: fluticasone (Flonase) 50 MCG/ACT nasal spray, INSTILL 2 SPRAY INTO EACH NOSTRIL ONCE DAILY for 30, Disp: , Rfl: metoprolol succinate XL (Toprol-XL) 100 MG 24 hr tablet, Take 100 mg by mouth Daily Do not crush or chew., Disp: , Rfl: Multiple Vitamins-Minerals (HAIR SKIN & NAILS PO), Take 1 tablet by mouth 1 (one) time each day, Disp: , Rfl: omeprazole (PriLOSEC) [address] capsule, TAKE 1 CAPSULE BY MOUTH EVERY DAY, Disp: 30 capsule, Rfl: 0 Social History: Social History Socioeconomic History Marital status: Spouse name: Not on file Number of children: Not on file Years of education: Not on file Highest education level: Not on file Occupational History Not on file Tobacco Use Smoking status: Never Smokeless tobacco: Never Vaping Use Vaping status: Never Used Substance and Sexual Activity Alcohol use: Yes Comment: 1-2 drinks 2-4 x a month in the past year, Caffeine intake: 1-2 cups per day tea Drug use: Not on file Sexual activity: Not on file Other Topics Concern Not on file Social History Narrative Not on file Social Drivers of Health Financial Resource Strain: Not on file Food Insecurity: Not on file Transportation Needs: Not on file Physical Activity: Not on file Stress: Not on file Social Connections: Not on file Intimate Partner Violence: Unknown (08/13/2023) [facility]ceived [facility] Safety & Environment Fear of Current or Ex-Partner: Not on file Emotionally Abused: Not on file Physically Abused: Not on file Sexually Abused: Not on file Physically or Sexually Abused: Not on file Housing Stability: Not on file ROS: General: denies fever, chills, fatigue, malaise Gastrointestinal: denies abdominal pain, ulcers, or changes in appetite or bowel habits Musculoskeletal: denies arthritis, denies loss of strength, pain to hip, knees, back Cardiovascular: denies CP, palpitations, positive history of PVCs OBJECTIVE LE EXAM: DERM: Positive hair growth to b/l feet with good skin turgor noted. Negative openings in skin. Scar to the right 1st MPJ and area of prior bunionectomy site VASC: Palpable pedal pulsed b/l with warm to cool tibia to toes b/l NEURO: Gross sensation intact digits 1-10 and b/l feet ORTHO: +5/5 DF/PF/IN/EV right, +5/5 DF/PF/IN/EV left. 20 degrees inversion and 10 degrees eversion STJ b/l. Ankle ROM less than 10 degrees b/l. Positive pain on palpation to right 2nd MPJ capsule with negative Anton test Plantar flexed right 2nd metatarsal XRAY:XR foot 3+ views right Imaging Result: Notable bunionectomy site with dorsal 1st metatarsal exostosis and notable right 2nd slight offset in joint between proximal phalanx and 2nd metatarsal head region US: ASSESSMENT 1. Capsulitis of metatarsophalangeal (MTP) joint of right foot 2. Metatarsal deformity, right PLAN Patient declined steroid injection today Prescription for Medrol Dosepak Pre-certify for orthotics Reviewed xrays today with patient Renny Albert DPM documented in this encounter [facility] History of Present illness Narrative 10-04-2024 TAMIR Shannon - 10/04/2024 1:00 PM EDT Note Date & Type Note Facility 10-04-2024 History of Presen t illness Narrative Images from the original note were not included. Subjective Patient ID: Su Zhang is a 48 y.o. female who presents for wellness. Subjective Su Zhang is a 48 y.o. female and is here for a comprehensive physical exam. The patient reports she has 2 spots on her head that she would like looked at. Both are in the hairline on the left side of her head. States likes to eat. Is scheduled to see Podiatry 10/13/2024. Current Outpatient Medications on File Prior to Visit Medication Sig Dispense Refill cetirizine (ZyrTEC) 10 MG tablet Take 1 tablet by mouth Daily as needed dilTIAZem CD (Cardizem CD) 120 MG 24 hr capsule TAKE 1 CAPSULE (120 MG) BY MOUTH IN THE MORNING fluticasone (Flonase) 50 MCG/ACT nasal spray INSTILL 2 SPRAY INTO EACH NOSTRIL ONCE DAILY for 30 metoprolol succinate XL (Toprol-XL) 100 MG 24 hr tablet Take 100 mg by mouth Daily Do not crush or chew. Multiple Vitamins-Minerals (HAIR SKIN & NAILS PO) Take 1 tablet by mouth 1 (one) time each day omeprazole (PriLOSEC) [address] capsule TAKE 1 CAPSULE BY MOUTH EVERY DAY 30 capsule 0 [DISCONTINUED] Apple Kareem Vn-Grn Tea-Bit Or-Cr (APPLE CIDER VINEGAR PLUS PO) Take 1 tablet by mouth Daily [DISCONTINUED] metoprolol succinate XL (Toprol-XL) 50 MG 24 hr tablet Take 50 mg by mouth in the morning. No current facility-administered medications on file prior to visit. I have reviewed and reconciled the history and medication list with the patient today. Allergies Allergen Reactions Other Other Reaction(s): diff breathing Social History Tobacco Use Smoking status: Never Smokeless tobacco: Never Vaping Use Vaping status: Never Used Substance Use Topics Alcohol use: Yes Comment: 1-2 drinks 2-4 x a month in the past year, Caffeine intake: 1-2 cups per day tea Family History Problem Relation Name Age of Onset Hypertension Father Heart disease Maternal Grandmother Cancer Maternal Grandmother Diabetes Maternal Grandfather Heart disease Maternal Grandfather Heart disease Paternal Grandmother Heart disease Paternal Grandfather Hypertension Paternal Grandfather Diabetes Paternal Grandfather Diabetes Sibling Past Medical History: Diagnosis Date Abnormal mammogram 02/01/2018 Gastric ulcer 2012 GERD (gastroesophageal reflux disease) History of CT scan 11/28/[address] scan of Chest negative History of CT scan 06/2018 CT scan Sinuses Pansinusitis History of medical problems 03/26/2019 Endometrium is 9mm in thickness History of medical problems 04/30/2022 Normal Ventricular size and function. LVEF at 65-70%. No significant valvular dysfunction. Trivial pericardial effusion Hypertension (CMS/HCC) Personal history of other medical treatment 11/03/2017 Echo shows EF 65-70% No RWMA, Normal Right Ventricular pressures Personal history of other medical treatment 11/26/[address] scan of Abdomen negative except for cyst or dense lass at the tail of pancreas PVC (premature ventricular contraction) Sinusitis Past Surgical History: Procedure Laterality Date BACK SURGERY 1994 BUNIONECTOMY Bilateral EGD ENDOMETRIAL ABLATION EYE SURGERY MMA 01/20/2019 ant ethmoid, r/o tonia, Yeyomis OTHER SURGICAL HISTORY 2019 uterine ablation PELVIC LAPAROSCOPY Visit Vitals BP 132/78 Pulse 82 Resp 16 Ht 5' 7 Wt 194 lb 9.6 oz SpO2 96% BMI 30.48 kg/m Smoking Status Never BSA 2.04 m Review of Systems Constitutional: Negative for chills, fatigue and fever. HENT: Negative for congestion, ear pain, rhinorrhea and sore throat. Eyes: Negative for pain, discharge and visual disturbance. Respiratory: Negative for cough, shortness of breath and wheezing. Cardiovascular: Negative for chest pain, palpitations and leg swelling. Gastrointestinal: Negative for abdominal pain, constipation, diarrhea, nausea and vomiting. Genitourinary: Negative for difficulty urinating, dysuria and frequency. Musculoskeletal: Negative for arthralgias and back pain. Skin: Negative for rash. See HPI Neurological: Negative for dizziness and numbness. Psychiatric/Behavioral: Negative for sleep disturbance. The patient is not nervous/anxious. Objective Physical Exam Constitutional: General: She is not in acute distress. Appearance: She is well-developed. She is obese. HENT: Head: Normocephalic and atraumatic. Right Ear: Tympanic membrane and ear canal normal. Left Ear: Tympanic membrane and ear canal normal. Nose: Nose normal. Mouth/Throat: Mouth: Mucous membranes are moist. Pharynx: Posterior oropharyngeal erythema (Mild) and postnasal drip present. Eyes: General: No scleral icterus. Extraocular Movements: Extraocular movements intact. Conjunctiva/sclera: Conjunctivae normal. Pupils: Pupils are equal, round, and reactive to light. Cardiovascular: Rate and Rhythm: Normal rate and regular rhythm. Heart sounds: Normal heart sounds. No murmur heard. Pulmonary: Effort: Pulmonary effort is normal. No respiratory distress. Breath sounds: Normal breath sounds. No wheezing, rhonchi or rales. Abdominal: General: Bowel sounds are normal. There is no distension. Palpations: Abdomen is soft. Tenderness: There is no abdominal tenderness. There is no guarding. Musculoskeletal: General: No swelling or deformity. Normal range of motion. Cervical back: Normal range of motion and neck supple. No tenderness. Lumbar back: Tenderness (Left) present. Skin: General: Skin is warm and dry. Capillary Refill: Capillary refill takes less than 2 seconds. Findings: Lesion present. No rash. Comments: Scalp along hairline just left of center with flesh colored papule, < 0.5 cm. Neurological: General: No focal deficit present. Mental Status: She is alert and oriented to person, place, and time. Cranial Nerves: No cranial nerve deficit. Sensory: No sensory deficit. Motor: No weakness. Gait: Gait normal. Deep Tendon Reflexes: Reflexes normal. Psychiatric: Mood and Affect: Mood normal. Behavior: Behavior normal. Thought Content: Thought content normal. Judgment: Judgment normal. Assessment/Plan Diagnoses and all orders for this visit: Wellness examination - Vitamin D 25 hydroxy Total - TSH W/REFLEX TO FT4 - CEA; Future - CA 125; Future - Basic metabolic panel - CBC and differential - Estradiol; Future - FSH; Future Wellness form reviewed in detail with the patient. Encouraged patient to stay up to date on immunizations and preventative testing. Encouraged healthy diet, stay active. Will continue with yearly wellness exams. Essential hypertension (CMS/HCC) - Basic metabolic panel - CBC and differential Patient's blood pressure is currently well controlled. Continue with current medications and I will continue to monitor. Palpitations - Estradiol; Future - FSH; Future The patient is seeing a medical psychotherapist for this condition, treatment is deferred to that specialist. Correspondence from that specialist and any available testing were reviewed during today's visit. Tachycardia The patient is seeing a medical psychotherapist for this condition, treatment is deferred to that specialist. Correspondence from that specialist and any available testing were reviewed during today's visit. Tension headache This is a chronic medical condition that is stable since last assessment. Esophageal stricture This is a chronic medical condition that is stable since last assessment. No changes in treatment are suggested at this time. Continue Omeprazole as prescribed. Pancreatic cyst (CMS/HCC) - CT abdomen w IV contrast; Future Spoke with patient. She does not believe this was followed up on since the CT from 2018. Does not recall Cardiology discussing this with her, they had ordered the testing. 6 mm cystic type lesion seen on tail of pancrease on CT from November of 2017. Will order an updated CT at this time to evaluate further. Gastroesophageal reflux disease with esophagitis without hemorrhage. This is a chronic medical condition that is stable since last assessment. No changes in treatment are suggested at this time. Continue Omeprazole as prescribed. Idiopathic scoliosis and kyphoscoliosis This is a chronic medical condition that is stable since last assessment. Class 1 obesity due to excess calories without serious comorbidity with body mass index (BMI) of 30.0 to 30.9 in adult Encouraged portion control, decrease simple sugars and carbohydrates, gradually increase activity level. Aim for gradual steady weight loss. Encouraged small improvements in lifestyle over time, developing good habits. Thyroid enlargement (CMS/HCC) - TSH W/REFLEX TO FT4 Will recheck thyroid function with upcoming labs. Vitamin D deficiency - Vitamin D 25 hydroxy Total Will recheck Vitamin D with upcoming labs. Chronic pansinusitis This is a chronic medical condition that is stable since last assessment. No changes in treatment are suggested at this time. Abnormal mammogram Mammogram from 02/24/2024 was negative/stable. Will continue to monitor. Anxiety This is a chronic medical condition that is stable since last assessment. No treatment needed at this time. Mixed hyperlipidemia (CMS/HCC) - Basic metabolic panel - CBC and differential Recent Lipid Panel showed LDL 109, HDL 48. She will continue to have this done yearly. Seasonal allergic rhinitis due to pollen This is a chronic medical condition that is stable since last assessment. No changes in treatment are suggested at this time. Continue Flonase as prescribed. Situational anxiety This is a chronic medical condition that is stable since last assessment. No treatment needed at this time. Neoplasm of uncertain behavior of skin - Ambulatory referral to Dermatology; Future Provided pt with referral to Dermatology for further evaluation at this time. Family history of cancer - CEA; Future - CA 125; Future Pt has family history of breast cancer, bone cancer, and lung cancer. Pt requested additional testing. Encouraged her to continue to stay up to date on her Mammograms. Screen for colon cancer - Ambulatory referral to Gastroenterology; Future Pt had previous negative Cologuard in 2023. She would like to have a Colonoscopy completed also. Weight gain - Estradiol; Future - FSH; Future Will check hormone levels with upcoming labs. Local superficial swelling, mass or lump - US chest; Future Patient would like the area of previous swelling over the left side of her rib cage rechecked. Feels it has gotten larger lately. Follow up in about 1 year (around 10/04/2025) for Wellness. documented in this encounter [facility] Progress note 03-31-2025 Note Date & Type Note Facility 09-19-2024 Note [place] [facility] - [facility] Subjective Su Zhang is a 48 y.o. year old female patient being seen for Hypertension and Palpitations Patient Active Problem List Diagnosis Essential hypertension Headache Lightheadedness Palpitations Tachycardia, unspecified Abnormal mammogram Anxiety Chronic sinusitis Esophageal stricture Idiopathic scoliosis and kyphoscoliosis Pancreatic cyst Reflux esophagitis Seasonal allergic rhinitis Seasonal allergies Tension headache Thyroid enlargement Vitamin D deficiency Hyperlipidemia HPI 09/19/2024 Patient states that she has been doing well. She denies any chest discomfort at rest or with exertion. She denies exertional dyspnea, orthopnea or paroxysmal nocturnal dyspnea. She denies dizziness, syncope or near syncope. She reports rare occasions of brief palpitations. She denies legs edema or discomfort on exertion. She is walking but she is having hard time losing weight. 06/10/2024 Patient was seen in the past by [...] or tired during the daytime. She takes [id number] medication to help her with sleeping and usually she has good sleep She brought her home blood pressure log and her blood pressure appears to be frequently on the high side with systolic in the 140s and most important diastolic in the high 80s to 90s Review of Systems Cardiovascular: Positive for palpitations. All systems were reviewed and they were [...] No Known Allergies Medications Current Outpatient Medications: cetirizine 10 mg tablet,disintegrating, Take by mouth., Disp: , Rfl: biotin 2,500 mcg capsule, Take by mouth., [...] mg) by mouth in the morning., Disp: 90 tablet, Rfl: 3 omeprazole (PriLOSEC) [address] capsule, Take 1 tablet by mouth in the morning., Disp: , Rfl: Objective Visit Vitals BP 122/80 (BP Location: Right arm, Patient Position: Sitting) Pulse 68 Ht 1.702 m (5' 7 ) Wt 88.5 kg (195 lb) SpO2 95% BMI 30.54 kg/m??? Smoking Status Never BSA 2.05 m??? Physical exam: GENERAL: alert and oriented [...] appropriate mood, affect, and judgement. Recent Labs Labs 09/17/2024 Triglyceride 120, cholesterol 181, HDL 48, LDL 109, AST 36, ALT 57 04/07/2024 White blood count 7.7, hemoglobin 14.8, [...] 65-70%). No regional wall motion abnormality. Normal r (more content not included)... [facility] Progress note 06-10-2024 Note Date & Type Note Facility 06-10-2024 Note [place] [facility] - [facility] Subjective Su Zhang is a 48 [...] or tired during the daytime. She takes [id number]-[id number] medication to help her with sleeping and [...] daily, not optimall (more content not included)... [facility] Evaluation note Note Date & Type Note Facility Evaluation note Diagnosis Wellness examination- Primary Essential hypertension (CMS/HCC) Unspecified essential hypertension Palpitations Tachycardia Unspecified tachycardia Tension headache Esophageal stricture Stricture and stenosis of esophagus Pancreatic cyst (CMS/HCC) Cyst and pseudocyst of pancreas Gastroesophageal reflux disease with esophagitis without hemorrhage Idiopathic scoliosis and kyphoscoliosis Scoliosis (and kyphoscoliosis), idiopathic Class 1 obesity due to excess calories without serious comorbidity with body mass index (BMI) of 30.0 to 30.9 in adult Thyroid enlargement (CMS/HCC) Goiter, unspecified Vitamin D deficiency Chronic pansinusitis Other chronic sinusitis Abnormal mammogram Abnormal mammogram, unspecified Anxiety Anxiety state, unspecified Mixed hyperlipidemia (CMS/HCC) Mixed hyperlipidemia Seasonal allergic rhinitis due to pollen Situational anxiety Neoplasm of uncertain behavior of skin Family history of cancer Family history of unspecified malignant neoplasm Screen for colon cancer Special screening for malignant neoplasms, colon Weight gain Other symptoms concerning nutrition, metabolism, and development Local superficial swelling, mass or lump Localized superficial swelling, mass, or lump documented in this encounter [facility] Evaluation note Note Date & Type Note Facility Evaluation note Diagnosis Capsulitis of metatarsophalangeal (MTP) joint of right foot- Primary Metatarsal deformity, right documented in this encounter [facility] Summary Purpose Family History No Family History [...] and content) DATE CREATED AUTHOR 12/09/2017 [facility] DATE CREATED AUTHOR AUTHOR'S ORGANIZ ATION 01/28/2019 [facility] DATE CREATED AUTHOR AUTHOR'S ORGANIZ ATION 05/04/2022 [facility] DATE CREATED AUTHOR AUTHOR'S ORGANIZ ATION 09/20/2024 [facility] DATE CREATED AUTHOR AUTHOR'S ORGANIZ ATION 10/25/2024 [facility] DATE CREATED AUTHOR AUTHOR'S ORGANIZ ATION 11/04/2024 [facility] EPIC DATE CREATED AUTHOR AUTHOR'S ORGANIZ ATION 11/19/2024 [facility] Care Teams (unrecognized sec tion and content) Entry Level Manager Relationship Specialty Start Date End Date Dionna Brown MD [address] [address] PCP - General Family Medicine 10/28/22 Entry Level Manager Relationship Specialty Start Date End Date Dionna Brown MD 112 [facility] [address] [place] [address] PCP - General Family Medicine 10/28/22 Entry Level Manager Relationship Specialty Start Date End Date Dionna Brown MD 112 [facility] [address] [place] [address] PCP - General Family Medicine 10/28/22 Entry Level Manager Relationship Specialty Start Date End Date Dionna Brown MD 112 [facility] [address] [place] [address] PCP - General Family Medicine 10/28/22 Entry Level Manager Relationship Specialty Start Date End Date Dionna Borwn MD [address] [address] PCP - General Family Medicine 10/28/22 Reason for Visit (unrecogniz ed section and content) Reason Comments Foot Pain Rt ft Reason Comments Follow-up Rt 2nd cap FOR RECORDS PERTAINING TO PATIENTS WHO ARE [...] BE BASED ON THE PRIMARY CLINICAL RECORDS. [employer] provides no warranty or guarantee of the accuracy or completeness of information in this document.
--- NOTE | 2025-02-24 07:54 | MM_ITS ---
Patient Name: SU ZHANG MR#: [id number] : 1975 Exam Date: 02/24/2025 Ordering Doctor: DR COBY ONEILL . RADIOLOGY REPORT PROCEDURE: MM TOMOSYNTHESIS SCREENING BI COMPARISON: MM TOMOSYNTHESIS SCREENING BI, 02/24/2024. MM TOMOSYNTHESIS SCREENING BI, 02/18/2023. MG MAMM SCREEN 3D HECTOR CAD, 02/17/2022. MG MAMM SCREEN HECTOR W CAD, 01/27/2018. INDICATIONS: Screening Calculator Name NCI Breast Cancer Risk Assessment Tool 5 Year Breast Cancer Risk 1.10% Lifetime Breast Cancer Risk 11.60% Personal Breast Cancer No Personal Ovarian Cancer No Treatments None Family Cancers Aunt-maternal with breast cancer at age 62; Aunt-maternal with bone/breast cancer at age 62; Aunt-maternal with lung cancer at age 69. LOCATION: [facility] BREAST COMPOSITION: The breasts are heterogeneously dense, which may obscure small masses. FINDINGS: DIAGNOSTIC CATEGORY 0--INCOMPLETE: NEED ADDITIONAL IMAGING EVALUATION. RIGHT BREAST: There is a new 5 mm focal asymmetry 4.5 cm from the nipple in the right breast laterally inferiorly at the 8 o'clock position. LEFT BREAST: No significant suspicious finding. RECOMMENDATIONS: ADDITIONAL MAMMOGRAPHIC VIEWS REQUIRED: RIGHT BREAST - follow-up with spot compressed views of the right breast and ultrasound if necessary is recommended. Dictated by: Lucas Flores MD on 02/24/2025 at 13:20 Approved by: Lucas Flores MD on 02/24/2025 at 13:27
== END 2025-02-24 07:21 | disposition home or self-care (01) ==
PROVIDERS: PCP Family Medicine; Visit Provider Obstetrics & Gynecology
DX: Z12.31 Encounter for screening mammogram for malignant neoplasm of breast (principal); Z80.3 Family history of malignant neoplasm of breast; Z80.1 Family history of malignant neoplasm of trachea, bronchus and lung; Z80.8 Family history of malignant neoplasm of other organs or systems; R92.8 Other abnormal and inconclusive findings on diagnostic imaging of breast
CPT/HCPCS: 77063; 77067